=== PATIENT | female | born 1940 | race Caucasian/White ===

== ENCOUNTER 2018-03-10 17:32 | Inpatient (IN) ==
[2018-03-11] MEDS ORDERED: Acetaminophen 325 MG Tablet PO PRN (00:50)
[2018-03-11 07:32] LABS: Calcium 9.1 mg/dL (8.5-10.1); Carbon Dioxide 27.7 meq/L (21.0-32.0); Potassium 3.7 meq/L (3.5-5.1)
[2018-03-11 07:36] LABS: Chol/HDL Ratio 1.61 Ratio; HDL Cholesterol 90.8 mg/dL (40.0-60.0)
[2018-03-11] MEDS: LORazepam 0.5 MG Tablet PO PRN (16:00)
[2018-03-11] MEDS: Sertraline 50 MG Tablet PO SCH (16:03)
[2018-03-11] MEDS: Aluminum/Magnesium/Simethacone Susp 30 ML UDC PO PRN (16:05)
[2018-03-11 17:22] LABS: Hemoglobin A1c 5.5 % (4.3-6.0)
--- NOTE | 2018-03-11 17:23 | P.CON ---
History of Present Illness Reason for Consult: Patient with a history of hypertension, GERD, autoimmune hepatitis, history Primary Care Provider: UNKNOWN History of Present Illness: The patient is a 77-year-old female with past medical history of hypertension, GERD, macular degeneration left eye, autoimmune hepatitis, history of skin cancer, incidental findings of marked microadenoma on CT, recently treated for dehydration and altered mental status at [facility]. Patient was transferred to [facility] for suicidal ideation. Patient is responsible reporting abdominal discomfort, and she is still confused. The hospitalist is consulted for evaluation Review of Systems All other systems reviewed negative except as stated in HPI PMFSH - History History Provided By: Patient - Medical History Medical History: Medical History (Last Reviewed 03/11/18 @ 19:09 by Carmen Morelos MD) Altered mental status Autoimmune hepatitis Dehydration GERD (gastroesophageal reflux disease) History of skin cancer Hypertension Suicidal ideation - Tobacco History Second Hand Smoke Exposure: No Smoking Status: Never smoker - Alcohol History How Often Do You Have a Drink Containing Alcohol: Monthly or less - Substance Use History Substance History: No History of Abuse Medications and Allergies Active Medications: Active Medications Acetaminophen (Tylenol) 650 mg PO Q4H PRN PRN Reason: PAIN 1-5 OR TEMP > 101 Al Hydrox/Mg Hydrox/Simethicone (Mag-Al Plus Susp Liq) 30 ml PO Q6H PRN PRN Reason: DYSPEPSIA Last Admin: 03/11/18 16:05 Dose: 30 ml Al Hydroxide/Mg Hydroxide (Milk Of Magnesia Liq) 30 ml PO DAILY PRN PRN Reason: CONSTIPATION Diphenhydramine HCl (Benadryl) 25 mg PO HS JUANY Lorazepam (Ativan) 0.5 mg PO Q12H PRN PRN Reason: MOD TO SEVERE ANXIETY Last Admin: 03/11/18 16:00 Dose: 0.5 mg Lorazepam (Ativan Inj) 0.5 mg IM Q12H PRN PRN Reason: MOD TO SEVERE ANXIETY Miscellaneous (Pill Splitter) 1 each OTHER UNSCH PRN PRN Reason: SEE LABEL COMMENTS Sertraline HCl (Zoloft) 25 mg PO DAILY JUANY Last Admin: 03/11/18 16:03 Dose: 25 mg Allergies Allergy/AdvReac Type Severity Reaction Status Date / Time mafenide [From Sulfamylon] Allergy Anaphylaxis Verified 03/11/18 01:08 Sulfa (Sulfonamide Allergy Anaphylaxis Verified 03/11/18 01:03 Antibiotics) sulfabenzamide Allergy Anaphylaxis Verified 03/11/18 01:08 sulfacetamide Allergy Anaphylaxis Verified 03/11/18 01:08 sulfacytine Allergy Anaphylaxis Verified 03/11/18 01:08 sulfadiazine Allergy Anaphylaxis Verified 03/11/18 01:08 sulfadimethoxine Allergy Anaphylaxis Verified 03/11/18 01:08 sulfadoxine Allergy Anaphylaxis Verified 03/11/18 01:08 sulfaguanidine Allergy Anaphylaxis Verified 03/11/18 01:08 sulfalene Allergy Anaphylaxis Verified 03/11/18 01:08 sulfamerazine Allergy Anaphylaxis Verified 03/11/18 01:08 sulfameter Allergy Anaphylaxis Verified 03/11/18 01:08 sulfamethazine Allergy Anaphylaxis Verified 03/11/18 01:08 sulfamethizole Allergy Anaphylaxis Verified 03/11/18 01:08 sulfamethoxazole Allergy Anaphylaxis Verified 03/11/18 01:01 [From Bactrim] sulfamethoxypyridazine Allergy Anaphylaxis Verified 03/11/18 01:08 sulfametrole Allergy Anaphylaxis Verified 03/11/18 01:08 sulfamoxole Allergy Anaphylaxis Verified 03/11/18 01:08 sulfanilamide Allergy Anaphylaxis Verified 03/11/18 01:08 sulfaphenazole Allergy Anaphylaxis Verified 03/11/18 01:08 sulfapyridine Allergy Anaphylaxis Verified 03/11/18 01:08 sulfasalazine Allergy Anaphylaxis Verified 03/11/18 01:08 sulfathiazole Allergy Anaphylaxis Verified 03/11/18 01:08 sulfur [From Sulfacet-R] Allergy Anaphylaxis Verified 03/11/18 01:08 trimethoprim [From Bactrim] Allergy Anaphylaxis Verified 03/11/18 01:01 Home Medications Medication Instructions Recorded Confirmed Type Systane (propylene glycol) See Label Instructions .ROUTE 03/11/18 03/11/18 History .COMPLEX PRN vit C,U-Hd-nnytc-lutein-zeaxan BID 03/11/18 History [PreserVision AREDS-2] Physical Exam Vital signs: Vital Signs 03/11/18 00:03 03/11/18 05:02 Temperature 97.6 F 97.3 F L Pulse Rate 101 H 102 H Respiratory Rate 18 17 Blood Pressure 166/78 H 150/70 H Pulse Oximetry 96 96 Intake & Output 03/10/18 03/11/18 03/11/18 18:59 06:59 18:59 Intake Total 240 / 240 480 / 480 Balance 240 / 240 480 / 480 Weight 66.4 kg Intake: Oral 240 / 240 480 / 480 Other: # Voids 3 Weight On Admission 66.4 kg Narrative: GENERAL: 77 yo F in nad. SKIN: Warm and dry. HEAD: Atraumatic. Normocephalic. EYES: Pupils equal and round. No scleral icterus. No injection or drainage. ENT: No nasal bleeding or discharge. Mucous membranes pink and moist. NECK: Trachea midline. No JVD. CARDIOVASCULAR: Regular rate and rhythm. RESPIRATORY: No accessory muscle use. Clear to auscultation. Breath sounds equal bilaterally. GASTROINTESTINAL: Abdomen soft, non-tender, nondistended. Hepatic and splenic margins not palpable. MUSCULOSKELETAL: Extremities without clubbing, cyanosis, or edema. No obvious deformities. NEUROLOGICAL: Awake and alert. No obvious cranial nerve deficits. Motor grossly within normal limits. Five out of 5 muscle strength in the arms and legs. Normal speech. PSYCHIATRIC: Appropriate mood and affect; insight and judgment normal. Assessment and Plan - Plan Suicidal ideation -management per psychiatry team Chronic medical problems GERD, autoimmune hepatitis, hypertension monitor , restart home medications as appropriate. Do medication reconciliations. Recently [facility] for dehydration. Incidental findings pituitary macroadenoma, underwent extensive work up at [facility]. Was seen by neurology Dr Gagnon , recommends follow up with CT scan in 2-3 months with her PCP as well as to follow up as OP with endocrinology. Patient without dizziness and no vision changes. Will check cbc, cmp Discussed with the patient, nurse, family Discussed Condition With: Patient, nurse
--- NOTE | 2018-03-11 22:07 | P.HPPSY ---
Provisional Diagnosis Admission Date: March 10, 2018 23:40 [place] I.: Adjustment disorder with depressed mood Competence Certification of Person's Competence To Provide Express and Informed Consent I have personally examined Diane Covarrubias, a person being served at [facility] on, March 11, 2018 2148. Express and informed consent means consent voluntarily given in writing, by a competent person, after sufficient explanation and disclosure of the subject matter involved to enable the person to make a knowing and willful decision without any element of force, fraud, deceit, duress, or other form of constraint or coercion. This person is 18 years of age or older, is not now known to be incompetent to consent to treatment with a guardian advocate, and does not have a health care surrogate or proxy currently making medical treatment decisions. I have found this person to be one of the following: [] Competent to provide express and informed consent, as defined above, for voluntary admission to this facility and is competent to provide express and informed consent for treatment. He/she has the consistent capacity to make well reasoned, willful, and knowing decisions concerning his or her medical or mental health treatment. The person fully and consistently understands the purpose of the admission for examination/placement and is fully capable of personally exercising all rights assured under [place]xxx] Incompetent to provide express and informed consent to voluntary admission , and this is incompetent to provide express and informed consent to treatment. The person must be transferred to involuntary status and a petition for a guardian advocate filed with the Circuit Court. [] Refusing to provide express and informed consent to voluntary admission but is competent to provide express and informed consent for treatment. The person must be discharged or transferred to involuntary status. Form shall be completed within 24 hours of a person's arrival at the receiving facility and filed in the clinical record of each person: 1. Admitted on a voluntary basis 2. Permitted to provide express and informed consent to his/her own treatment 3. Allowed to transfer from involuntary to voluntary status 4. Prior to permitting a person to consent to his or her own treatment after having been previously found incompetent to consent to treatment. History of Present Illness Capacity: Lacks capacity History of Present Illness: Patient is a 77-year-old woman, , retired on Social Security income, domiciled with , with no past psychiatric history, no previous psychiatric diagnoses, no previous psychiatric admissions, suicide attempts or self-injurious behavior, with a past medical history significant for hypertension, GERD, autoimmune hepatitis, history of skin cancer, who was transferred from a local hospital after being under [place] act which patient had endorse suicide ideations and attempted to herself on the medical floor which patient was admitted to the inpatient psychiatry unit for further evaluation and management. As per chart [place] act states patient with suicide attempt and never to kill herself. No will to live due to her medical conditions and decrease socialization secondary to visual problems. States "no hope, too much to handle". Stuffing sheets in her mouth and covering her nose and try to wrap an IV line around her neck. Patient was found lying hospital bed noted B, cooperative. Patient is alert and oriented x3. Patient states that she had been stressed and worried about eating and concerns of recent constipation. Patient states that she had broken the law in which she tried to harm herself with anything she could grab referred to staffing closet her mouth and appear quite on her neck. Patient states that she had attempted this at [facility] during her medical admission for dehydration. Patient denies having a specific plan but had suicide ideation for several days due to "cannot figure out what to eat, cannot make choices, hopeless". Patient states that she has been feeling depressed due to her physical conditions at this time. Currently continues to endorse suicide ideations feeling that things would not change, hopeless, decreased sleep for the past month, denying any change in appetite but has hesitancy to eat due to fear of constipation as stated above. Patient continues to feel helpless and hopeless, with decreased energy and concentration. Patient denies any perceptional disturbances at this time. Collateral contact, patient's daughter Leti Hyatt, was contacted via telephone stated that patient recently has since her hip surgery patient had been struggling with recovering in the patient to be frustrated with limited help. She states that the patient had become dehydrated which led to her admission to [facility] and prior to discharge from that admission patient had tried to hurt herself. She states that she believes patient feared that if she went home she would not receive the help at home. She agrees to be patient's healthcare surrogate and guardian advocate there is admission consents for treatment which medication regimen was reviewed and discussed benefits/risks/alternatives. Family psychiatric history: Uncle committed suicide Past psychiatric history: Denies previous psychiatric diagnoses, hospitalizations, suicide attempt or self-injurious behavior. Patient with no mental health outpatient provider. No previous medication trials. Past medical history: HTN, GERD, history of skin cancer, autoimmune hepatitis Allergies: Sulfas Substance use history: Denies Social history: , domiciled with , retired on Social Security income, yazidism is [employer], patient not sure if there are firearms in the home. - Inpatient Certification I certify that the inpatient services were ordered in accordance with Medicare regulations governing the order. This includes certification that hospital inpatient services are reasonable and necessary and in the case of services not specified as inpatient-only under 42 CFR 419.22(n), that they are appropriately provided as inpatient services in accordance to with the 2-midnight benchmark under 43 CFR 412.3(e) I certify that inpatient psychiatric hospital services are medically necessary. Evaluation and treatment and/or diagnostic testing are expected to improve the patient's condition. The patient needs on a daily basis, active treatment furnished directly by or requiring the supervision of inpatient psychiatric facility personnel. Estimated Total Length of Stay (Days): 7 Plans for Post Hospital Care: Not yet determined Review of Systems All other systems reviewed negative except as stated in [facility] - History History Provided By: Patient, Family Member, Medical Record - Medical History Medical History: Medical History (Last Reviewed 03/11/18 @ 19:09 by Carmen Morelos MD) Altered mental status Autoimmune hepatitis Dehydration GERD (gastroesophageal reflux disease) History of skin cancer Hypertension Suicidal ideation - Tobacco History Second Hand Smoke Exposure: No Smoking Status: Never smoker - Alcohol History How Often Do You Have a Drink Containing Alcohol: Monthly or less - Substance Use History Substance History: No History of Abuse Quality Measures - Psychiatric History Psychological trauma history: denies Violence risk to others in the last 6 months: low Violence risk to self in the last 6 months: elevated due to recent parasuicidal behavior - Substance Abuse History Drug or alcohol use in the past 12 months: denies - Patient Strengths Patient's strengths (minimum of 2): verbal and communicative Medications and Allergies Active Medications: Active Medications Acetaminophen (Tylenol) 650 mg PO Q4H PRN PRN Reason: PAIN 1-5 OR TEMP > 101 Al Hydrox/Mg Hydrox/Simethicone (Mag-Al Plus Susp Liq) 30 ml PO Q6H PRN PRN Reason: DYSPEPSIA Last Admin: 03/11/18 16:05 Dose: 30 ml Al Hydroxide/Mg Hydroxide (Milk Of Magnkings Liq) 30 ml PO DAILY PRN PRN Reason: CONSTIPATION Artificial Tears (Refresh Tears 0.5% Opth Drops) 1 drop EACH EYE UNSCH PRN PRN Reason: EYE IRRITATION Diphenhydramine HCl (Benadryl) 25 mg PO HS [facility] Last Admin: 03/11/18 21:14 Dose: 25 mg Lorazepam (Ativan) 0.5 mg PO Q12H PRN PRN Reason: MOD TO SEVERE ANXIETY Last Admin: 03/11/18 16:00 Dose: 0.5 mg Lorazepam (Ativan Inj) 0.5 mg IM Q12H PRN PRN Reason: MOD TO SEVERE ANXIETY Miscellaneous (Pill Splitter) 1 each OTHER UNSCH PRN PRN Reason: SEE LABEL COMMENTS Multivitamins/Minerals (Ocuvite With Lutein) 1 tab PO BID [facility] Sertraline HCl (Zoloft) 25 mg PO DAILY [facility] Last Admin: 03/11/18 16:03 Dose: 25 mg Allergies Allergy/AdvReac Type Severity Reaction Status Date / Time mafenide [From Sulfamylon] Allergy Anaphylaxis Verified 03/11/18 01:08 Sulfa (Sulfonamide Allergy Anaphylaxis Verified 03/11/18 01:03 Antibiotics) sulfabenzamide Allergy Anaphylaxis Verified 03/11/18 01:08 sulfacetamide Allergy Anaphylaxis Verified 03/11/18 01:08 sulfacytine Allergy Anaphylaxis Verified 03/11/18 01:08 sulfadiazine Allergy Anaphylaxis Verified 03/11/18 01:08 sulfadimethoxine Allergy Anaphylaxis Verified 03/11/18 01:08 sulfadoxine Allergy Anaphylaxis Verified 03/11/18 01:08 sulfaguanidine Allergy Anaphylaxis Verified 03/11/18 01:08 sulfalene Allergy Anaphylaxis Verified 03/11/18 01:08 sulfamerazine Allergy Anaphylaxis Verified 03/11/18 01:08 sulfameter Allergy Anaphylaxis Verified 03/11/18 01:08 sulfamethazine Allergy Anaphylaxis Verified 03/11/18 01:08 sulfamethizole Allergy Anaphylaxis Verified 03/11/18 01:08 sulfamethoxazole Allergy Anaphylaxis Verified 03/11/18 01:01 [From Bactrim] sulfamethoxypyridazine Allergy Anaphylaxis Verified 03/11/18 01:08 sulfametrole Allergy Anaphylaxis Verified 03/11/18 01:08 sulfamoxole Allergy Anaphylaxis Verified 03/11/18 01:08 sulfanilamide Allergy Anaphylaxis Verified 03/11/18 01:08 sulfaphenazole Allergy Anaphylaxis Verified 03/11/18 01:08 sulfapyridine Allergy Anaphylaxis Verified 03/11/18 01:08 sulfasalazine Allergy Anaphylaxis Verified 03/11/18 01:08 sulfathiazole Allergy Anaphylaxis Verified 03/11/18 01:08 sulfur [From Sulfacet-R] Allergy Anaphylaxis Verified 03/11/18 01:08 trimethoprim [From Bactrim] Allergy Anaphylaxis Verified 03/11/18 01:01 Home Medications Medication Instructions Recorded Confirmed Type Systane (propylene glycol) See Label Instructions .ROUTE 03/11/18 03/11/18 History .COMPLEX PRN vit C,T-Ra-gaynn-lutein-zeaxan BID 03/11/18 History [PreserVision AREDS-2] Results - Labs CBC & Chem 7: 03/11/18 06:50 Labs: Laboratory Results - last 24 hr 03/11/18 03/11/18 06:50 15:00 Sodium 134 L Potassium 3.7 Chloride 100 Carbon Dioxide 27.7 Anion Gap 6 BUN 11 Creatinine 0.75 Estimated GFR 75 L Random Glucose 102 Hemoglobin A1c 5.5 Calcium 9.1 Triglycerides 83 Cholesterol 147 LDL Cholesterol, Calc 40 HDL Cholesterol 90.8 H Cholesterol/HDL Ratio 1.61 Exam Vital signs: Vital Signs 03/11/18 00:03 03/11/18 05:02 03/11/18 17:29 Temperature 97.6 F 97.3 F L 97.7 F Pulse Rate 101 H 102 H 96 H Respiratory Rate 18 17 18 Blood Pressure 166/78 H 150/70 H 175/81 H Pulse Oximetry 96 96 97 Intake & Output 03/11/18 03/11/18 03/12/18 06:59 18:59 06:59 Intake Total 240 / 240 1200 / 1200 Balance 240 / 240 1200 / 1200 Weight 66.4 kg Intake: Oral 240 / 240 1200 / 1200 Other: # Voids 3 2 Weight On Admission 66.4 kg Narrative: Not noted to be in acute distress, no gross motor abnormalities, no signs of tremor or EPS, no psychomotor agitation but noted with some psychomotor retardation. - Constitutional no acute distress, cooperative Mental Status Examination Orientation: Person, Place, Date/Time Speech: Unremarkable Language: Adequate Fund of Knowledge: Inadequate Attention and Concentration: Easily distracted Memory: Impaired Mood: Anxious Affect: Anxious Thought Process & Associations: Tangential Thought Content: Preoccupations Delusion Type: Bizarre Insight: Poor Judgment: Poor Assessment and Plan - Assessment (1) Adjustment disorder with depressed mood Code(s): F43.21 - Adjustment disorder with depressed mood Status: Acute - Plan Plan: Estimated LOS: [] days Patient is a 77-year-old woman, , retired on Social Security income, domiciled with , with no past psychiatric history, no previous psychiatric diagnoses, no previous psychiatric admissions, suicide attempts or self-injurious behavior, with a past medical history significant for hypertension, GERD, autoimmune hepatitis, history of skin cancer, who was transferred from a local hospital after being under [place] act which patient had endorse suicide ideations and attempted to herself on the medical floor which patient was admitted to the inpatient psychiatry unit for further evaluation and management. Patient this time continues with depressed mood along with suicide ideations and noted to have some psychomotor retardation. Patient depressesion has affected her cognitive ability at this time does not have capacity to consent for treatment and therefore petition for involuntary hospitalization started, second opinion requested Patient daughter will serve as health concerns regarding advocate for this admission. We will start sertraline 25 mg p.o. daily with upper titration for depression. Hospitalist input appreciated. Continue recommendations as her prior medical team. Continue to monitor mood and behavior. Discharge planning a progress. Justification for Continued Inpatient Stay: At risk of further decompensation a lower level of care.
[2018-03-11] MEDS: Vitamins A,C,E/Lutein/Minerals Tablet PO SCH (22:27)
--- NOTE | 2018-03-12 09:20 | P.PN ---
Subjective Interval history: The patient is in bed family at bedside. Patient is crying appears severely depressed. With suicidal ideations and patient says she wants to . Denies chest pain or shortness of breath. No nausea or vomiting. She is however refusing to eat and is refusing medications. Sodium level is trending down. Encourage p.o. intake. Physical Exam Vital signs: Vital Signs 03/11/18 17:29 03/12/18 06:00 Temperature 97.7 F 97.1 F L Pulse Rate 96 H 90 Respiratory Rate 18 16 Blood Pressure 175/81 H 125/95 H Pulse Oximetry 97 95 Intake & Output 03/11/18 03/12/18 03/12/18 18:59 06:59 18:59 Intake Total 1200 / 1200 240 / 240 Balance 1200 / 1200 240 / 240 Intake: Oral 1200 / 1200 240 / 240 Other: # Voids 2 Narrative: GENERAL: 77 yo F in bed, appears severely depressed crying. CARDIOVASCULAR: Regular rate and rhythm. RESPIRATORY: No accessory muscle use. Clear to auscultation. Breath sounds equal bilaterally. GASTROINTESTINAL: Abdomen soft, non-tender, nondistended. Hepatic and splenic margins not palpable. MUSCULOSKELETAL: Extremities without clubbing, cyanosis, or edema. No obvious deformities. NEUROLOGICAL: Awake and alert. No obvious cranial nerve deficits. Motor grossly within normal limits. Five out of 5 muscle strength in the arms and legs. Normal speech. PSYCHIATRIC: Severely depressed. With suicidal ideation says she wants to . Results - Labs CBC & Chem 7: 03/12/18 14:16 Laboratory Results - last 24 hr 03/11/18 15:00 Hemoglobin A1c 5.5 Assessment and Plan - Assessment (1) Adjustment disorder with depressed mood Code(s): F43.21 - Adjustment disorder with depressed mood Status: Acute - Plan Suicidal ideation -management per psychiatry team Chronic medical problems GERD, autoimmune hepatitis, hypertension monitor , restart home medications as appropriate. Do medication reconciliations. Recently seen at [facility] for dehydration. Incidental findings pituitary macroadenoma, underwent extensive work up at [facility]. Was seen by neurology Dr Gagnon , recommends follow up with CT scan in 2-3 months with her PCP as well as to follow up as OP with endocrinology. Patient without dizziness and no vision changes. Mild hyponatremia , Na at 134 on admission, sodium is trending down, encourage PO intake. So regular diet add mighty shakes Discussed with the patient, nurse, family at bedside
[2018-03-12] MEDS: LORazepam 0.5 MG Tablet PO PRN ×2 (11:27→23:57)
[2018-03-12] MEDS: Sertraline 50 MG Tablet PO SCH (11:27)
[2018-03-12] MEDS: Vitamins A,C,E/Lutein/Minerals Tablet PO SCH ×2 (11:27→21:08)
[2018-03-12 14:50] LABS: Alanine Aminotransferase 19 U/L (10-53); Albumin 3.2 g/dL (3.4-5.0); Anion Gap 10 meq/L (5-15); Aspartate Aminotransferase 15 U/L (15-37); Blood Urea Nitrogen 12 mg/dL (7-18); Calcium 8.9 mg/dL (8.5-10.1); Carbon Dioxide 26.1 meq/L (21.0-32.0); Chloride 96 meq/L (98-107); Glomerular Filtration Rate Greater Than 89 mL/min (>89); Glucose,Random 102 mg/dL (74-106); Potassium 4.1 meq/L (3.5-5.1); Sodium 132 meq/L (136-145)
[2018-03-12 14:53] LABS: Alkaline Phosphatase 54 U/L (45-117); Total Protein 7.2 g/dL (6.4-8.2)
--- NOTE | 2018-03-12 17:26 | P.CONPSY ---
Provisional Diagnosis Admission Date: March 10, 2018 23:40 [place] I.: Adjustment disorder with depressed mood History of Present Illness Service: Psychiatry Consult date: 03/12/18 Requesting Physician: Velasquez Luna Reason for Consult: Second opinion petition supporting Bynum act Primary Care Provider: UNKNOWN History of Present Illness: Patient is a 77-year-old white female admitted to Dr. Luna service under the Bynum act. Dr. Luna assigned first opinion petition supporting Bynum act. I have reviewed Dr. Luna dictation, patient seen by me with nurse. Patient remains depressed somewhat irritable somewhat hopeless and helpless. She is somewhat vague at this time about continued suicidality. At this time I feel patient meets criteria under the Bynum act thus I will cosign second opinion petition supporting [place] act Review of Systems All other systems reviewed negative except as stated in HPI PMFSH - History History Provided By: Patient, Family Member, Medical Record - Medical History Medical History: Medical History (Last Reviewed 03/11/18 @ 19:09 by Carmen Morelos MD) Altered mental status Autoimmune hepatitis Dehydration GERD (gastroesophageal reflux disease) History of skin cancer Hypertension Suicidal ideation - Tobacco History Second Hand Smoke Exposure: No Smoking Status: Never smoker - Alcohol History How Often Do You Have a Drink Containing Alcohol: Monthly or less - Substance Use History Substance History: No History of Abuse Medications and Allergies Active Medications: Active Medications Acetaminophen (Tylenol) 650 mg PO Q4H PRN PRN Reason: PAIN 1-5 OR TEMP > 101 Al Hydrox/Mg Hydrox/Simethicone (Mag-Al Plus Susp Liq) 30 ml PO Q6H PRN PRN Reason: DYSPEPSIA Last Admin: 03/11/18 16:05 Dose: 30 ml Al Hydroxide/Mg Hydroxide (Milk Of Magnesia Liq) 30 ml PO DAILY PRN PRN Reason: CONSTIPATION Artificial Tears (Refresh Tears 0.5% Opth Drops) 1 drop EACH EYE UNSCH PRN PRN Reason: EYE IRRITATION Diphenhydramine HCl (Benadryl) 25 mg PO HS JUANY Last Admin: 03/11/18 21:14 Dose: 25 mg Lorazepam (Ativan) 0.5 mg PO Q12H PRN PRN Reason: MOD TO SEVERE ANXIETY Last Admin: 03/12/18 11:27 Dose: 0.5 mg Lorazepam (Ativan Inj) 0.5 mg IM Q12H PRN PRN Reason: MOD TO SEVERE ANXIETY Miscellaneous (Pill Splitter) 1 each OTHER UNSCH PRN PRN Reason: SEE LABEL COMMENTS Multivitamins/Minerals (Ocuvite With Lutein) 1 tab PO BID [facility] Last Admin: 03/12/18 11:27 Dose: 1 tab Sertraline HCl (Zoloft) 25 mg PO DAILY [facility] Last Admin: 03/12/18 11:27 Dose: 25 mg Allergies Allergy/AdvReac Type Severity Reaction Status Date / Time mafenide [From Sulfamylon] Allergy Anaphylaxis Verified 03/11/18 01:08 Sulfa (Sulfonamide Allergy Anaphylaxis Verified 03/11/18 01:03 Antibiotics) sulfabenzamide Allergy Anaphylaxis Verified 03/11/18 01:08 sulfacetamide Allergy Anaphylaxis Verified 03/11/18 01:08 sulfacytine Allergy Anaphylaxis Verified 03/11/18 01:08 sulfadiazine Allergy Anaphylaxis Verified 03/11/18 01:08 sulfadimethoxine Allergy Anaphylaxis Verified 03/11/18 01:08 sulfadoxine Allergy Anaphylaxis Verified 03/11/18 01:08 sulfaguanidine Allergy Anaphylaxis Verified 03/11/18 01:08 sulfalene Allergy Anaphylaxis Verified 03/11/18 01:08 sulfamerazine Allergy Anaphylaxis Verified 03/11/18 01:08 sulfameter Allergy Anaphylaxis Verified 03/11/18 01:08 sulfamethazine Allergy Anaphylaxis Verified 03/11/18 01:08 sulfamethizole Allergy Anaphylaxis Verified 03/11/18 01:08 sulfamethoxazole Allergy Anaphylaxis Verified 03/11/18 01:01 [From Bactrim] sulfamethoxypyridazine Allergy Anaphylaxis Verified 03/11/18 01:08 sulfametrole Allergy Anaphylaxis Verified 03/11/18 01:08 sulfamoxole Allergy Anaphylaxis Verified 03/11/18 01:08 sulfanilamide Allergy Anaphylaxis Verified 03/11/18 01:08 sulfaphenazole Allergy Anaphylaxis Verified 03/11/18 01:08 sulfapyridine Allergy Anaphylaxis Verified 03/11/18 01:08 sulfasalazine Allergy Anaphylaxis Verified 03/11/18 01:08 sulfathiazole Allergy Anaphylaxis Verified 03/11/18 01:08 sulfur [From Sulfacet-R] Allergy Anaphylaxis Verified 03/11/18 01:08 trimethoprim [From Bactrim] Allergy Anaphylaxis Verified 09/25/18 01:01 Home Medications Medication Instructions Recorded Confirmed Type Systane (propylene glycol) See Label Instructions .ROUTE 03/11/18 03/11/18 History .COMPLEX PRN vit C,U-Rj-ijaix-lutein-zeaxan BID 03/11/18 History [PreserVision AREDS-2] Exam Vital signs: Vital Signs 03/11/18 17:29 03/12/18 06:00 Temperature 97.7 F 97.1 F L Pulse Rate 96 H 90 Respiratory Rate 18 16 Blood Pressure 175/81 H 125/95 H Pulse Oximetry 97 95 Intake & Output 03/11/18 03/12/18 03/12/18 18:59 06:59 18:59 Intake Total 1200 / 1200 240 / 240 960 / 960 Balance 1200 / 1200 240 / 240 960 / 960 Intake: Oral 1200 / 1200 240 / 240 960 / 960 Other: # Voids 2 2 # Bowel Movements 0 Narrative: Patient is seen in her room with nurse, she is laying in bed in no acute distress, no respiratory distress, no complaints of chest pain or abdominal pain. Patient moving all 4 extremities slightly Mental Status Examination Orientation: Person, Place, Date/Time Speech: Unremarkable Language: Adequate Fund of Knowledge: Inadequate Attention and Concentration: Easily distracted Memory: Impaired Mood: Anxious Affect: Anxious Thought Process & Associations: Tangential Thought Content: Preoccupations Delusion Type: Bizarre Insight: Poor Judgment: Poor Assessment and Plan - Assessment (1) Adjustment disorder with depressed mood Code(s): F43.21 - Adjustment disorder with depressed mood Status: Acute - Plan Plan: Patient meets Bynum criteria thus I will cosign second opinion petition supporting Bynum act Justification for Continued Inpatient Stay: At this time patient would decompensate if placed in a lower level of care Discharge Planning: To be determined
[2018-03-12] MEDS: Aluminum/Magnesium/Simethacone Susp 30 ML UDC PO PRN (23:57)
[2018-03-13 08:27] LABS: Anion Gap 9 meq/L (5-15); Blood Urea Nitrogen 11 mg/dL (7-18); Calcium 8.6 mg/dL (8.5-10.1); Carbon Dioxide 25.3 meq/L (21.0-32.0); Chloride 94 meq/L (98-107); Glomerular Filtration Rate Greater Than 89 mL/min (>89); Glucose,Random 120 mg/dL (74-106); Potassium 4.1 meq/L (3.5-5.1); Sodium 128 meq/L (136-145)
[2018-03-13] MEDS: Sertraline 50 MG Tablet PO SCH (08:27)
[2018-03-13] MEDS: Vitamins A,C,E/Lutein/Minerals Tablet PO SCH ×2 (08:27→20:20)
[2018-03-13] MEDS: LORazepam 0.5 MG Tablet PO PRN (11:22)
[2018-03-13] MEDS: Carboxymethylcellulose 0.5% Opth Drops 15 ML Bottle EACH EYE PRN ×2 (11:40→20:20)
--- NOTE | 2018-03-13 13:27 | P.PN ---
Subjective Interval history: In nad Eating better today. No nausea or vomiting. No motor deficit or change in vision. Denies chest pain or shortness of breath. She is able to ambulate with a walker Says she is sleepy Physical Exam Vital signs: Vital Signs 03/12/18 18:36 03/13/18 06:00 Temperature 97.6 F 97.6 F Pulse Rate 87 89 Respiratory Rate 18 18 Blood Pressure 147/84 H 147/69 H Pulse Oximetry 96 96 Intake & Output 03/12/18 03/13/18 03/13/18 18:59 06:59 18:59 Intake Total 960 / 960 300 / 300 360 / 360 Balance 960 / 960 300 / 300 360 / 360 Intake: Oral 960 / 960 300 / 300 360 / 360 Other: # Voids 2 1 # Bowel Movements 0 Narrative: GENERAL: 77 yo F in bed, appears to not acute distress, appears depressed CARDIOVASCULAR: Regular rate and rhythm. RESPIRATORY: No accessory muscle use. Clear to auscultation. Breath sounds equal bilaterally. GASTROINTESTINAL: Abdomen soft, non-tender, nondistended. Hepatic and splenic margins not palpable. MUSCULOSKELETAL: Extremities without clubbing, cyanosis, or edema. No obvious deformities. NEUROLOGICAL: Awake and alert. No obvious cranial nerve deficits. Motor grossly within normal limits. Five out of 5 muscle strength in the arms and legs. Normal speech. PSYCHIATRIC: Appears depressed. Results - Labs CBC & Chem 7: 03/13/18 07:12 Laboratory Results - last 24 hr 03/12/18 03/13/18 14:16 07:12 Sodium 132 L 128 L Potassium 4.1 4.1 Chloride 96 L 94 L Carbon Dioxide 26.1 25.3 Anion Gap 10 9 BUN 12 11 Creatinine 0.55 0.57 Estimated GFR Greater than 89 Greater than 89 Random Glucose 102 120 H Calcium 8.9 8.6 Total Bilirubin 0.8 AST 15 ALT 19 Alkaline Phosphatase 54 Total Protein 7.2 Albumin 3.2 L Assessment and Plan - Assessment (1) Adjustment disorder with depressed mood Code(s): F43.21 - Adjustment disorder with depressed mood Status: Acute - Plan Depression. Suicidal ideation -management per psychiatry team Chronic medical problems GERD, autoimmune hepatitis, hypertension monitor , restart home medications as appropriate. Do medication reconciliations. Recently seen at [facility] for dehydration. Incidental findings pituitary macroadenoma, underwent extensive work up at [facility]. Was seen by neurology Dr Gagnon , recommends follow up with CT scan in 2-3 months with her PCP as well as to follow up as OP with endocrinology. Patient without dizziness and no vision changes. Mild hyponatremia , Na at 134 on admission, sodium is trending down, encourage PO intake. regular diet / mighty shakes. Consult dietitian. Discussed with the patient, nurse
--- NOTE | 2018-03-13 17:34 | P.PNPSY ---
Subjective Remarks: Patient seen in her room with nurse Ashok and medical student Hedy Harris Patient calm cooperative though still depressed sad quiet spoken. When asked about if she would take the suicide pill she stated "do not ask me that". Later she said she wants to live. She is compliant with her medications. The chart is been reviewed. Patient discussed with nurse. For now continue treatment Review of Systems All other systems reviewed negative except as stated in HPI Mental Status Examination Appearance: Appropriate Consciousness: Alert Orientation: Person, Place, Date/Time Speech: Unremarkable Language: Adequate Fund of Knowledge: Inadequate Attention and Concentration: Easily distracted Memory: Impaired Mood: Anxious Affect: Anxious Thought Process & Associations: Tangential Thought Content: Preoccupations Delusion Type: Bizarre Insight: Poor Judgment: Poor Assessment and Plan - Assessment (1) Adjustment disorder with depressed mood Code(s): F43.21 - Adjustment disorder with depressed mood Status: Acute - Plan Plan: Patient remains depressed sad with a sad face, quiet spoken, made vague negative statement about taking the suicide pill. For now continue treatment Justification for Continued Inpatient Stay: At this time patient would decompensate a place to a lower level of care Discharge Planning: To be determined
[2018-03-14] MEDS: Vitamins A,C,E/Lutein/Minerals Tablet PO SCH ×2 (08:00→21:19)
[2018-03-14] MEDS: LORazepam 0.5 MG Tablet PO PRN (08:00)
[2018-03-14] MEDS: Sertraline 50 MG Tablet PO SCH (08:00)
[2018-03-14 08:49] LABS: Anion Gap 9 meq/L (5-15); Blood Urea Nitrogen 9 mg/dL (7-18); Carbon Dioxide 23.9 meq/L (21.0-32.0); Chloride 91 meq/L (98-107); Glomerular Filtration Rate Greater Than 89 mL/min (>89); Glucose,Random 117 mg/dL (74-106); Potassium 4.2 meq/L (3.5-5.1)
[2018-03-14 09:18] LABS: Sodium 124 meq/L (136-145)
--- NOTE | 2018-03-14 11:13 | P.PN ---
Subjective Interval history: Na trending down start NS IVF and monitor Na level. Might need water restriction. No abdominal cramps, diarrhea. Has constipation. She is not confused. Still very depressed plan to increase Zoloft per psychiatry. Says she is eating better today however sodium is noted trending down. Physical Exam Vital signs: Vital Signs 03/13/18 18:00 03/14/18 06:15 Temperature 98.1 F 97.3 F L Pulse Rate 82 84 Respiratory Rate 18 16 Blood Pressure 157/72 H 169/77 H Pulse Oximetry 97 96 Intake & Output 03/13/18 03/14/18 03/14/18 18:59 06:59 18:59 Intake Total 1680 / 1680 840 / 840 Balance 1680 / 1680 840 / 840 Intake: Oral 1680 / 1680 840 / 840 Other: # Voids 3 1 Narrative: GENERAL: 77 yo F in bed, appears to not acute distress, appears depressed CARDIOVASCULAR: Regular rate and rhythm. RESPIRATORY: No accessory muscle use. Clear to auscultation. Breath sounds equal bilaterally. GASTROINTESTINAL: Abdomen soft, non-tender, nondistended. Hepatic and splenic margins not palpable. MUSCULOSKELETAL: Extremities without clubbing, cyanosis, or edema. No obvious deformities. NEUROLOGICAL: Awake and alert. No obvious cranial nerve deficits. Motor grossly within normal limits. Five out of 5 muscle strength in the arms and legs. Normal speech. PSYCHIATRIC: Appears depressed. Results - Labs CBC & Chem 7: 03/14/18 07:27 Laboratory Results - last 24 hr 03/14/18 07:27 Sodium 124 L* Potassium 4.2 Chloride 91 L Carbon Dioxide 23.9 Anion Gap 9 BUN 9 Creatinine 0.50 Estimated GFR Greater than 89 Random Glucose 117 H Calcium 9.0 Assessment and Plan - Assessment (1) Adjustment disorder with depressed mood Code(s): F43.21 - Adjustment disorder with depressed mood Status: Acute - Plan Depression. Suicidal ideation -management per psychiatry team Chronic medical problems GERD, autoimmune hepatitis, hypertension monitor , restart home medications as appropriate. Do medication reconciliations. Recently seen at [facility] for dehydration. Incidental findings pituitary macroadenoma, underwent extensive work up at [facility]. Was seen by neurology Dr Gagnon , recommends follow up with CT scan in 2-3 months with her PCP as well as to follow up as OP with endocrinology. Patient without dizziness and no vision changes. Mild hyponatremia , Na at 134 on admission, sodium is trending down, encourage PO intake. regular diet / mighty shakes. Consult dietitian. Discussed with the patient, nurse
[2018-03-14] MEDS ORDERED: Sodium Chloride 0.9% 2 ML Flush PRN IV.FLUSH (12:27)
[2018-03-14] MEDS: Sod Chloride 0.9% Inj 1,000 ML IV.CONT SCH (12:49)
--- NOTE | 2018-03-14 13:59 | P.DIET ---
Nutritional Evaluation Type of nutrition evaluation: initial Nutrition screening: Poor PO Intake, [facility] Screening comments: 03/12/18 [facility] Poor PO Intake Subjective Subjective Comments: Pt says she has been "gagging" today. Pt requested Ensure earlier this week and she has been receiving Ensure w/meals. Pt reports she drank an Ensure this morning. has ordered Mighty Shakes and she says she is willing to try these and then decide which nutritional supplement she prefers. Pt says she'll "keep trying" to do better w/her food intake. Food Preferences taken. Objective - Diagnosis Adjustment DO - Objective [place] body weight: 48 kg % IBW: 139 Body Weight Used for Calculations: IBW Energy Needs - Lower Range (kCal/kg): 28 Energy Needs - Upper Range (kCal/kg): 33 Lower Limit kCal/kg (kCals): 1,336 Upper Limit kCal/kg (kCals): 1,584 Lower Limit Protein Factor (Grams per Kg): 1.2 Upper Limit Protein Factor (Grams per Kg): 1.5 Lower Protein Needs (Protein): 58 Upper Protein Needs (Protein): 72 Dietitian Reviewed in Medical Record: Current diet, Curent medications, Intake & Output, Labs, Medical history Diet Order: Regular Oral Diet Intake Amount: Fair 50-75% Objective Comments: PMH: AMS, Autoimmune Hepatitis, Dehydration, GERD, skin cancer, HTN, Suicidal Ideation A1C 5.5, Na 124 Meds Include: Ativan, Zoloft Feeding - Current PO Supplement Current Supplement: Mighty Shake Current Frequency of Supplement: Three times a day Current kCals Provided by Supplement: 300 Current Protein Provided by Supplement: 9 Assessment Assessment: Pt is at nutritional risk r/t poor po intake. Pt is currently receiving Ensure per her request, w/meals. [facility] for Mighty Shakes. Pt will decide which supplement she prefers. [place] pt's food preferences to assist w/increased po intake. Pt may benefit from an appetite stimulant, if medically appropriate. Dietitian following. Recommendations: 1. Pt is currently receiving Ensure per her request, w/meals 2. [facility] for Mighty Shakes 3. Pt will decide which supplement she prefers 4. [place] pt's food preferences to assist w/increased po intake 5. Rec an appetite stimulant, if medically appropriate 6. Dietitian following Dietitian to Monitor: Lab values, Electrolytes, Supplement acceptance, Intake & Output, Weight change, PO Intake, Medical course
[2018-03-14] MEDS ORDERED: Sertraline 50 MG Tablet PO ONE (17:41)
[2018-03-14] MEDS: Sodium Chloride 0.9% 2 ML Flush BID IV.FLUSH SCH (21:21)
--- NOTE | 2018-03-14 22:09 | P.PNPSY ---
Subjective Remarks: Patient seen for follow, chart reviewed. Discussion with nursing staff reported the patient continues with poor PO intake, continues to noted to be depressed but had participated in a group. Patient was found lying on hospital bed, noted to be dysphoric, fair eye contact. Patient states feeling distressed last night, worried about her medications as well as anxious of eating more due to fearing that she will not tolerate the food. She continues to feel depressed but denies any SI, "I want to live" but states feeling "hopeless sometimes". She mentions fearing that she will not get better physically and mentally. She reports having poor sleep last night. Review of Systems All other systems reviewed negative except as stated in HPI Mental Status Examination Appearance: Appropriate Consciousness: Alert Orientation: Person, Place, Date/Time Speech: Unremarkable Language: Adequate Fund of Knowledge: Inadequate Attention and Concentration: Easily distracted Memory: Impaired Mood: Sad, Anxious Affect: Anxious, Other (dysphoric) Thought Process & Associations: Tangential Thought Content: Preoccupations Hallucination Type: None Delusion Type: None, Bizarre Suicidal Ideation: No (unreliable) Suicidal Plan: No Suicidal Intention: No Homicidal Ideation: No Homicidal Plan: No Homicidal Intention: No Insight: Poor Judgment: Poor Assessment and Plan - Assessment (1) Adjustment disorder with depressed mood Code(s): F43.21 - Adjustment disorder with depressed mood Status: Acute - Plan Plan: Patient continues with depressed mood and although denying any SI, is noted to be dysphoric with poor PO intake but made effort to participate in group. Increase sertraline to 100mg PO daily for depression, continue rest of medications and recommendations as per primary medical team. Encourage patient to increase nutritional intake. Discharge planning in progress. Justification for Continued Inpatient Stay: At risk for further decompensation at lower level of care.
[2018-03-15] MEDS: Sod Chloride 0.9% Inj 1,000 ML IV.CONT SCH ×3 (00:53→21:55)
[2018-03-15 08:17] LABS: Anion Gap 9 meq/L (5-15); Blood Urea Nitrogen 7 mg/dL (7-18); Calcium 8.2 mg/dL (8.5-10.1); Carbon Dioxide 24.2 meq/L (21.0-32.0); Chloride 92 meq/L (98-107); Glomerular Filtration Rate Greater Than 89 mL/min (>89); Glucose,Random 104 mg/dL (74-106); Potassium 4.3 meq/L (3.5-5.1); Sodium 125 meq/L (136-145)
[2018-03-15] MEDS: Sodium Chloride 0.9% 2 ML Flush BID IV.FLUSH SCH ×2 (08:43→21:54)
[2018-03-15] MEDS: Sertraline 50 MG Tablet PO SCH (08:44)
[2018-03-15] MEDS: Vitamins A,C,E/Lutein/Minerals Tablet PO SCH ×2 (08:44→21:54)
[2018-03-15] MEDS: LORazepam 0.5 MG Tablet PO PRN (14:10)
[2018-03-15] MEDS: Carboxymethylcellulose 0.5% Opth Drops 15 ML Bottle EACH EYE PRN (15:14)
--- NOTE | 2018-03-15 16:16 | P.PNPSY ---
Subjective Remarks: Patient was seen and case discussed with nursing. I met with patient and her family. Family is very concerned about her discharge plan. Patient is very anxious and at times tearful during the interview. She seems confused. This could be due to her hyponatremia which is being treated by her medical doctor. Her chief complaint today is insomnia and we reviewed her Ativan schedule and it was suggested that she ask for her second dose of as needed Ativan before bed Mental Status Examination Appearance: Appropriate Consciousness: Alert Orientation: Person, Place, Date/Time Speech: Unremarkable Language: Adequate Fund of Knowledge: Inadequate Attention and Concentration: Easily distracted Memory: Impaired Mood: Anxious Affect: Anxious Thought Process & Associations: Circumstantial Thought Content: Preoccupations Delusion Type: Bizarre Suicidal Ideation: No Suicidal Plan: No Suicidal Intention: No Homicidal Ideation: No Homicidal Plan: No Homicidal Intention: No Insight: Poor Judgment: Poor Assessment and Plan - Assessment (1) Adjustment disorder with depressed mood Code(s): F43.21 - Adjustment disorder with depressed mood Status: Acute - Plan Plan: Continue current treatment plan Justification for Continued Inpatient Stay: Patient would decompensate in a less restrictive setting
--- NOTE | 2018-03-15 16:21 | P.PN ---
Subjective Interval history: Appears depressed. Denies cp, sob, n/v/d/c. No abd cramps. Was able to ambulate. No confusion. She is alert and oriented by 4 Physical Exam Vital signs: Vital Signs 03/14/18 18:06 03/15/18 05:38 Temperature 97.9 F 97.2 F L Pulse Rate 80 82 Respiratory Rate 15 Blood Pressure 160/74 H 162/74 H Pulse Oximetry 96 95 Intake & Output 03/14/18 03/15/18 03/15/18 18:59 06:59 18:59 Intake Total 840 / 840 1840 / 1840 1720 / 1720 Balance 840 / 840 1840 / 1840 1720 / 1720 Intake: IV 1000 / 1000 1000 / 1000 NS Inj 1,000 ML @ 84 mls/hr IV. 1000 / 1000 1000 / 1000 CONT .[id number] JUANY Rx#:[id number] Oral 840 / 840 840 / 840 720 / 720 Other: # Voids 2 1 # Bowel Movements 1 Narrative: GENERAL: 77 yo F, well nourished well developed, appears depressed, anxious at times. CARDIOVASCULAR: Regular rate and rhythm. RESPIRATORY: No accessory muscle use. Clear to auscultation. Breath sounds equal bilaterally. GASTROINTESTINAL: Abdomen soft, non-tender, nondistended. Hepatic and splenic margins not palpable. MUSCULOSKELETAL: Extremities without clubbing, cyanosis, or edema. No obvious deformities. NEUROLOGICAL: Awake and alert. No obvious cranial nerve deficits. Motor grossly within normal limits. Five out of 5 muscle strength in the arms and legs. Normal speech. PSYCHIATRIC: Appears depressed. Results - Labs CBC & Chem 7: 03/15/18 07:00 Laboratory Results - last 24 hr 03/15/18 07:00 Sodium 125 L Potassium 4.3 Chloride 92 L Carbon Dioxide 24.2 Anion Gap 9 BUN 7 Creatinine 0.45 L Estimated GFR Greater than 89 Random Glucose 104 Calcium 8.2 L D Assessment and Plan - Assessment (1) Adjustment disorder with depressed mood Code(s): F43.21 - Adjustment disorder with depressed mood Status: Acute - Plan Depression. Suicidal ideation -management per psychiatry team Chronic medical problems GERD, autoimmune hepatitis, hypertension monitor , restart home medications as appropriate. Do medication reconciliations. Recently seen at [facility] for dehydration. Incidental findings pituitary macroadenoma, underwent extensive work up at [facility]. Was seen by neurology Dr Gagnon , recommends follow up with CT scan in 2-3 months with her PCP as well as to follow up as OP with endocrinology. Patient without dizziness and no vision changes. Hyponatremia , Na at 134 on admission, sodium is trending down, encourage PO intake. Started on 0.9 NS IVF. Minimal improvement in Na. Will give NaCl 1gm one time. Water restriction. Regular diet / ensure. Consult dietitian, appreciate recommendations. Monitor closely Na level to prevent fast correction. Discussed with the patient, nurse
[2018-03-15] MEDS ORDERED: Sodium Chloride 1 GM Tablet PO ONE (16:30)
[2018-03-15] MEDS: Aluminum/Magnesium/Simethacone Susp 30 ML UDC PO PRN (17:32)
[2018-03-15 19:17] LABS: Anion Gap 11 meq/L (5-15); Blood Urea Nitrogen 8 mg/dL (7-18); Calcium 8.3 mg/dL (8.5-10.1); Carbon Dioxide 22.8 meq/L (21.0-32.0); Chloride 90 meq/L (98-107); Glomerular Filtration Rate Greater Than 89 mL/min (>89); Glucose,Random 108 mg/dL (74-106); Potassium 4.3 meq/L (3.5-5.1)
[2018-03-15 19:50] LABS: Sodium 124 meq/L (136-145)
[2018-03-16 06:22] LABS: Anion Gap 8 meq/L (5-15); Blood Urea Nitrogen 6 mg/dL (7-18); Calcium 7.9 mg/dL (8.5-10.1); Carbon Dioxide 25.2 meq/L (21.0-32.0); Chloride 93 meq/L (98-107); Glomerular Filtration Rate Greater Than 89 mL/min (>89); Glucose,Random 92 mg/dL (74-106); Potassium 4.4 meq/L (3.5-5.1); Sodium 126 meq/L (136-145)
[2018-03-16] MEDS: Sertraline 50 MG Tablet PO SCH (08:58)
[2018-03-16] MEDS: Vitamins A,C,E/Lutein/Minerals Tablet PO SCH ×2 (08:59→21:39)
[2018-03-16] MEDS: Sodium Chloride 0.9% 2 ML Flush BID IV.FLUSH SCH ×2 (09:00→21:39)
[2018-03-16] MEDS: Sodium Chloride 1 GM Tablet PO SCH ×2 (11:02→21:39)
[2018-03-16] MEDS: LORazepam 0.5 MG Tablet PO PRN (11:02)
[2018-03-16] MEDS: Sod Chloride 0.9% Inj 1,000 ML IV.CONT SCH ×2 (11:03→22:12)
--- NOTE | 2018-03-16 13:55 | P.PNPSY ---
Subjective Remarks: Patient was seen and case discussed with nursing. Today, patient is markedly improved. She appears less anxious and is more organized. Her sleep has improved with her second dose of Ativan last night. is at her side and does not have any concerns. She continues to be followed by the medical team for hyponatremia Mental Status Examination Appearance: Appropriate Consciousness: Alert Orientation: Person, Place, Date/Time Speech: Unremarkable Language: Adequate Fund of Knowledge: Inadequate Attention and Concentration: Easily distracted Memory: Impaired Mood: Sad, Anxious Affect: Anxious, Other (dysphoric) Thought Process & Associations: Tangential Thought Content: Derealization, Preoccupations Hallucination Type: None Delusion Type: None, Bizarre Suicidal Ideation: No (unreliable) Suicidal Plan: No Suicidal Intention: No Homicidal Ideation: No Homicidal Plan: No Homicidal Intention: No Insight: Poor Judgment: Poor Assessment and Plan - Assessment (1) Adjustment disorder with depressed mood Code(s): F43.21 - Adjustment disorder with depressed mood Status: Acute - Plan Plan: Patient continues with depressed mood and although denying any SI, is noted to be dysphoric with poor PO intake but made effort to participate in group. Increase sertraline to 100mg PO daily for depression, continue rest of medications and recommendations as per primary medical team. Encourage patient to increase nutritional intake. Discharge planning in progress. Justification for Continued Inpatient Stay: Patient would decompensate in a less restrictive setting
[2018-03-16 19:46] LABS: Anion Gap 9 meq/L (5-15); Blood Urea Nitrogen 8 mg/dL (7-18); Calcium 8.6 mg/dL (8.5-10.1); Carbon Dioxide 23.9 meq/L (21.0-32.0); Chloride 91 meq/L (98-107); Glomerular Filtration Rate Greater Than 89 mL/min (>89); Glucose,Random 90 mg/dL (74-106); Potassium 4.4 meq/L (3.5-5.1)
[2018-03-16 19:49] LABS: Sodium 124 meq/L (136-145)
--- NOTE | 2018-03-17 08:27 | P.PN ---
Subjective Interval history: Follow-up visit hyponatremia, dehydration, HTN. Patient seen and examined today. Reports he is doing okay. Concerned about fluid restriction. Discussed with patient why she is on fluid restriction but continues encouraged to eat her food. Verbalized understanding. Oriented to time, place. Denies pain and discomfort. Denies SOB/ dyspnea. Denies chest pain, palpitations, headaches, dizziness. Denies fevers, chills, n/v/d. Denies dysuria. Physical Exam Vital signs: Vital Signs 03/16/18 18:02 03/17/18 06:24 Temperature 97.5 F L 98 F Pulse Rate 83 83 Respiratory Rate 17 16 Blood Pressure 142/67 H 157/71 H Pulse Oximetry 93 L 97 Intake & Output 03/16/18 03/17/18 03/17/18 18:59 06:59 18:59 Intake Total 1480 / 1480 1318 / 1318 Balance 1480 / 1480 1318 / 1318 Weight 68.6 kg Intake: IV 1000 / 1000 958 / 958 NS Inj 1,000 ML @ 84 mls/hr IV. 1000 / 1000 958 / 958 CONT .[id number] [facility] Rx#:[id number] Oral 480 / 480 360 / 360 Other: # Voids 3 2 Narrative: GENERAL: This is a well-nourished, well-developed patient, in no apparent distress. SKIN: Warm and dry HEENT: Normocephalic. Pupils equal round and reactive. Nose without bleeding. Airway patent. NECK: Trachea midline. CARDIOVASCULAR: Regular rate and rhythm without murmurs, gallops, or rubs. RESPIRATORY: Clear to auscultation. Breath sounds equal bilaterally. No wheezes , rales, or rhonchi. GASTROINTESTINAL: Abdomen soft, non-tender, nondistended. Bowel Sounds normoactive x4. MUSCULOSKELETAL: Extremities without clubbing, cyanosis, or edema. NEUROLOGICAL: Awake and alert. No focal neuro deficit. Moves all extremities. Normal speech. Results - Labs CBC & Chem 7: 03/17/18 07:50 Laboratory Results - last 24 hr 03/16/18 19:01 Sodium 124 L* Potassium 4.4 Chloride 91 L Carbon Dioxide 23.9 Anion Gap 9 BUN 8 Creatinine 0.51 Estimated GFR Greater than 89 Random Glucose 90 Calcium 8.6 Assessment and Plan - Assessment (1) Adjustment disorder with depressed mood Code(s): F43.21 - Status: Acute - Plan atmartine is a 77-year-old female with past medical history of hypertension, GERD, macular degeneration left eye, autoimmune hepatitis, history of skin cancer, incidental findings of marked microadenoma on CT, recently treated for dehydration and altered mental status at [facility]. Depression, suicidal ideation -Managed by psychiatry team Hyponatremia -Sodium level on admission 134 and has been trending down -NA 126 -->124 -->126 -Continue IV fluids -Continue sodium tabs -Continue fluid restriction. This has been extensively discussed with patient. -Continue to monitor sodium levels -Check serum osmolality, check urine sodium, urine osmole, urine lites Macroadenoma -Incidental findings of pituitary microadenoma [facility], underwent extensive workup. -Seen by neurology in that hospital and recommends follow-up with CT scan in 2-3 months with her PCP as well as follow-up as outpatient with endocrinology. DVT prop ambulatory Code Status: Full code Discussed Condition With: Patient, nursing Discharge Planning: DC disposition by primary team
[2018-03-17] MEDS: Sertraline 50 MG Tablet PO SCH (08:32)
[2018-03-17] MEDS: Vitamins A,C,E/Lutein/Minerals Tablet PO SCH ×2 (08:32→20:14)
[2018-03-17] MEDS: Sodium Chloride 1 GM Tablet PO SCH ×2 (08:32→21:57)
[2018-03-17 08:36] LABS: Anion Gap 8 meq/L (5-15); Blood Urea Nitrogen 7 mg/dL (7-18); Calcium 8.3 mg/dL (8.5-10.1); Carbon Dioxide 25.2 meq/L (21.0-32.0); Chloride 93 meq/L (98-107); Glomerular Filtration Rate Greater Than 89 mL/min (>89); Glucose,Random 98 mg/dL (74-106); Potassium 4.2 meq/L (3.5-5.1); Sodium 126 meq/L (136-145)
[2018-03-17] MEDS: Sodium Chloride 0.9% 2 ML Flush BID IV.FLUSH SCH ×2 (09:53→20:15)
[2018-03-17] MEDS: LORazepam 0.5 MG Tablet PO PRN (10:08)
[2018-03-17] MEDS: Sod Chloride 0.9% Inj 1,000 ML IV.CONT SCH ×2 (10:26→21:57)
[2018-03-17] MEDS: Carboxymethylcellulose 0.5% Opth Drops 15 ML Bottle EACH EYE PRN (13:40)
--- NOTE | 2018-03-17 14:25 | P.CON ---
History of Present Illness Primary Care Provider: UNKNOWN History of Present Illness: 77 yo F who was admitted under [facility] for suicidal ideation/attempt. Was found to have an incidental pituitary macroadenoma on an admission to [facility] recently. Patient states her vision has been a little blurry since coming to [place]. Ocular history significant for cataract surgery OU (by Dr.Tim Patel), and wet macular degeneration OU (with injections by Dr.Karl Alberto) . [facility] - History History Provided By: Patient, Family Member, Medical Record - Medical History Medical History: Medical History (Last Reviewed 03/11/18 @ 19:09 by Carmen Morelos MD) Altered mental status Autoimmune hepatitis Dehydration GERD (gastroesophageal reflux disease) History of skin cancer Hypertension Suicidal ideation - Tobacco History Second Hand Smoke Exposure: No Smoking Status: Never smoker - Alcohol History How Often Do You Have a Drink Containing Alcohol: Monthly or less - Substance Use History Substance History: No History of Abuse - Travel History Recent Travel in the [place] Within the Last 8 Weeks: No Recent Travel Out of the Country Within the Last 8 Weeks: No Medications and Allergies Active Medications: Active Medications Acetaminophen (Tylenol) 650 mg PO Q4H PRN PRN Reason: PAIN 1-5 OR TEMP > 101 Al Hydrox/Mg Hydrox/Simethicone (Mag-Al Plus Susp Liq) 30 ml PO Q6H PRN PRN Reason: DYSPEPSIA Last Admin: 03/15/18 17:32 Dose: 30 ml Al Hydroxide/Mg Hydroxide (Milk Of Magnesia Liq) 30 ml PO DAILY PRN PRN Reason: CONSTIPATION Artificial Tears (Refresh Tears 0.5% Opth Drops) 1 drop EACH EYE UNSCH PRN PRN Reason: EYE IRRITATION Last Admin: 03/17/18 13:40 Dose: 1 drop Diphenhydramine HCl (Benadryl) 50 mg PO HS [facility] Last Admin: 03/16/18 21:39 Dose: 50 mg Sodium Chloride (Ns Inj) 1,000 mls @ 84 mls/hr IV.CONT .[id number] [facility] Last Admin: 03/17/18 10:26 Dose: 84 mls/hr Lorazepam (Ativan) 0.5 mg PO Q12H PRN PRN Reason: MOD TO SEVERE ANXIETY Last Admin: 03/17/18 10:08 Dose: 0.5 mg Lorazepam (Ativan Inj) 0.5 mg IM Q12H PRN PRN Reason: MOD TO SEVERE ANXIETY Miscellaneous (Pill Splitter) 1 each OTHER UNSCH PRN PRN Reason: SEE LABEL COMMENTS Multivitamins (Theragran) 1 tab PO DAILY [facility] Last Admin: 03/17/18 08:32 Dose: 1 tab Multivitamins/Minerals (Ocuvite With Lutein) 1 tab PO BID [facility] Last Admin: 03/17/18 08:32 Dose: 1 tab Sertraline HCl (Zoloft) 50 mg PO DAILY [facility] Last Admin: 03/17/18 08:32 Dose: 50 mg Sodium Chloride (Ns Flush) 2 ml IV.FLUSH BID [facility] Last Admin: 03/17/18 09:53 Dose: Not Given Sodium Chloride (Ns Flush) 2 ml IV.FLUSH PRN PRN PRN Reason: FLUSH AFTER USING IV ACCESS Sodium Chloride (Sodium Chloride) 1 gm PO BID [facility] Last Admin: 03/17/18 08:32 Dose: 1 gm Allergies Allergy/AdvReac Type Severity Reaction Status Date / Time mafenide [From Sulfamylon] Allergy Anaphylaxis Verified 03/11/18 01:08 Sulfa (Sulfonamide Allergy Anaphylaxis Verified 03/11/18 01:03 Antibiotics) sulfabenzamide Allergy Anaphylaxis Verified 03/11/18 01:08 sulfacetamide Allergy Anaphylaxis Verified 03/11/18 01:08 sulfacytine Allergy Anaphylaxis Verified 03/11/18 01:08 sulfadiazine Allergy Anaphylaxis Verified 03/11/18 01:08 sulfadimethoxine Allergy Anaphylaxis Verified 03/11/18 01:08 sulfadoxine Allergy Anaphylaxis Verified 03/11/18 01:08 sulfaguanidine Allergy Anaphylaxis Verified 03/11/18 01:08 sulfalene Allergy Anaphylaxis Verified 03/11/18 01:08 sulfamerazine Allergy Anaphylaxis Verified 03/11/18 01:08 sulfameter Allergy Anaphylaxis Verified 03/11/18 01:08 sulfamethazine Allergy Anaphylaxis Verified 03/11/18 01:08 sulfamethizole Allergy Anaphylaxis Verified 03/11/18 01:08 sulfamethoxazole Allergy Anaphylaxis Verified 03/11/18 01:01 [From Bactrim] sulfamethoxypyridazine Allergy Anaphylaxis Verified 03/11/18 01:08 sulfametrole Allergy Anaphylaxis Verified 03/11/18 01:08 sulfamoxole Allergy Anaphylaxis Verified 03/11/18 01:08 sulfanilamide Allergy Anaphylaxis Verified 03/11/18 01:08 sulfaphenazole Allergy Anaphylaxis Verified 03/11/18 01:08 sulfapyridine Allergy Anaphylaxis Verified 03/11/18 01:08 sulfasalazine Allergy Anaphylaxis Verified 03/11/18 01:08 sulfathiazole Allergy Anaphylaxis Verified 03/11/18 01:08 sulfur [From Sulfacet-R] Allergy Anaphylaxis Verified 03/11/18 01:08 trimethoprim [From Bactrim] Allergy Anaphylaxis Verified 03/11/18 01:01 Home Medications Medication Instructions Recorded Confirmed Type Systane (propylene glycol) See Label Instructions .ROUTE 03/11/18 03/11/18 History .COMPLEX PRN vit C,C-Pb-zswxa-lutein-zeaxan BID 03/11/18 History [PreserVision AREDS-2] Physical Exam Vital signs: Vital Signs 03/16/18 18:02 03/17/18 06:24 Temperature 97.5 F L 98 F Pulse Rate 83 83 Respiratory Rate 17 16 Blood Pressure 142/67 H 157/71 H Pulse Oximetry 93 L 97 Intake & Output 03/16/18 03/17/18 03/17/18 18:59 06:59 18:59 Intake Total 1480 / 1480 1318 / 1318 1600 / 1600 Balance 1480 / 1480 1318 / 1318 1600 / 1600 Weight 68.6 kg Intake: IV 1000 / 1000 958 / 958 1000 / 1000 NS Inj 1,000 ML @ 84 mls/hr IV. 1000 / 1000 958 / 958 1000 / 1000 CONT .[id number] [facility] Rx#:[id number] Oral 480 / 480 360 / 360 600 / 600 Other: # Voids 3 2 - Detailed Eye Exam Comments: Va cc at near OD 20/70, OS 20/800 EOM full OU, no diplopia CVF full OD, unable OS Pupils 2-1 no APD OU IOP normal to palpation OU Anterior exam OD - normal eyelid, C/S W&Q, K clear, AC deep, pupil round, PCIOL OS - normal eyelid, C/S W&Q, K clear, AC deep, pupil round, PCIOL Assessment and Plan - Assessment (1) Exudative age-related macular degeneration of both eyes with active choroidal neovascularization Code(s): H35.3231 - Exudative age-related macular degeneration, bilateral, with active choroidal neovascularization Status: Acute Plan: Has been getting anti-VEGF injections in both eyes by Dr. Gm Alberto - follow up as scheduled. (2) Pseudophakia of both eyes Code(s): Z96.1 - Presence of intraocular lens Status: Acute Plan: Recently got a new glasses prescription from her outpatient guest services assistant, Dr.Tim Patel. Has not gotten the new glasses yet. (3) Pituitary adenoma Code(s): D35.2 - Benign neoplasm of pituitary gland Status: Acute Plan: Follow up with to get a Tena visual field as an outpatient once discharged.
--- NOTE | 2018-03-17 17:25 | P.PNPSY ---
Subjective Remarks: Reviewed electronic medical records and discussed case with staff. Follow-up was conducted in patient's room with nurse present. Nurse reports she has been demanding and entitled. Patient found sitting up in bed with her tray of uneaten food in front of her. She states that she took an Ativan and "it knocked me for a loop". The Ativan in question was 0.5 mg given at 10:00 this morning. I have decreased her Ativan p.o. dosage to 0.25. She reports that her mood is "not good" and that she did not sleep last night. She states that "all of this is overwhelming". She appears very dysphoric. Mental Status Examination Appearance: Appropriate Consciousness: Alert Orientation: Person, Place, Date/Time Speech: Unremarkable Language: Adequate Fund of Knowledge: Inadequate Attention and Concentration: Easily distracted Memory: Impaired Mood: Sad, Anxious Affect: Anxious, Other (dysphoric) Thought Process & Associations: Tangential Thought Content: Derealization, Preoccupations Hallucination Type: None Delusion Type: None, Bizarre Suicidal Ideation: No (unreliable) Suicidal Plan: No Suicidal Intention: No Homicidal Ideation: No Homicidal Plan: No Homicidal Intention: No Insight: Poor Judgment: Poor Assessment and Plan - Assessment (1) Adjustment disorder with depressed mood Code(s): F43.21 - Adjustment disorder with depressed mood Status: Acute - Plan Plan: Patient will be reevaluated tomorrow by the attending psychiatrist. Continue with current treatment plan. Justification for Continued Inpatient Stay: Moving this patient to a less restrictive environment would likely result in decompensation.
[2018-03-18 07:56] LABS: Anion Gap 9 meq/L (5-15); Blood Urea Nitrogen 6 mg/dL (7-18); Calcium 8.2 mg/dL (8.5-10.1); Carbon Dioxide 23.6 meq/L (21.0-32.0); Chloride 93 meq/L (98-107); Glomerular Filtration Rate Greater Than 89 mL/min (>89); Glucose,Random 97 mg/dL (74-106); Sodium 126 meq/L (136-145)
[2018-03-18] MEDS: Sodium Chloride 0.9% 2 ML Flush BID IV.FLUSH SCH ×2 (08:15→21:09)
[2018-03-18] MEDS: Sodium Chloride 1 GM Tablet PO SCH ×2 (08:15→21:09)
[2018-03-18] MEDS: Sertraline 50 MG Tablet PO SCH (08:15)
[2018-03-18] MEDS: Vitamins A,C,E/Lutein/Minerals Tablet PO SCH ×2 (08:16→21:09)
[2018-03-18] MEDS: Sod Chloride 0.9% Inj 1,000 ML IV.CONT SCH (08:32)
--- NOTE | 2018-03-18 08:55 | P.PN ---
Subjective Interval history: Follow-up visit hyponatremia, dehydration, HTN. Patient seen and examined today. Patient indicates she gets full after eating, mild nausea. Denies any heartburn. No abdominal pain. States that her stools are firm, requesting stool softener. No chest pain, no shortness of breath. No fever, no chills. Eating okay, maintaining fluid restriction. Physical Exam Vital signs: Vital Signs 03/17/18 18:20 03/18/18 05:15 Temperature 97.7 F 97.1 F L Pulse Rate 72 87 Respiratory Rate 17 Blood Pressure 162/72 H 178/78 H Pulse Oximetry 97 96 Intake & Output 03/17/18 03/18/18 03/18/18 18:59 06:59 18:59 Intake Total 2320 / 2320 1360 / 1360 1000 / 1000 Balance 2320 / 2320 1360 / 1360 1000 / 1000 Intake: IV 1000 / 1000 1000 / 1000 1000 / 1000 NS Inj 1,000 ML @ 84 mls/hr IV. 1000 / 1000 1000 / 1000 1000 / 1000 CONT .[id number] [facility] Rx#:[id number] Oral 1320 / 1320 360 / 360 Other: # Voids 2 2 Date of Last Bowel Movement 03/17/18 # Bowel Movements 0 0 Narrative: GENERAL: This is a well-nourished, well-developed patient, in no apparent distress. SKIN: Warm and dry HEENT: Normocephalic. Pupils equal round and reactive. Nose without bleeding. Airway patent. NECK: Trachea midline. CARDIOVASCULAR: Regular rate and rhythm without murmurs, gallops, or rubs. RESPIRATORY: Clear to auscultation. Breath sounds equal bilaterally. No wheezes , rales, or rhonchi. GASTROINTESTINAL: Abdomen soft, non-tender, nondistended. Bowel Sounds normoactive x4. MUSCULOSKELETAL: Extremities without clubbing, cyanosis, or edema. NEUROLOGICAL: Awake and alert. No focal neuro deficit. Moves all extremities. Normal speech. Results - Labs CBC & Chem 7: 03/18/18 07:15 Laboratory Results - last 24 hr 03/17/18 03/18/18 11:49 07:15 Sodium 126 L Potassium 4.0 Chloride 93 L Carbon Dioxide 23.6 Anion Gap 9 BUN 6 L Creatinine 0.36 L Estimated GFR Greater than 89 Random Glucose 97 Osmolality 259 L Calcium 8.2 L Assessment and Plan - Assessment (1) Adjustment disorder with depressed mood Code(s): F43.21 - Adjustment disorder with depressed mood Status: Acute (2) Hyponatremia Code(s): E87.1 - Hypo-osmolality and hyponatremia Status: Acute (3) Pituitary adenoma Code(s): D35.2 - Benign neoplasm of pituitary gland Status: Chronic - Plan Patient is a 77-year-old female with past medical history of hypertension, GERD , macular degeneration left eye, autoimmune hepatitis, history of skin cancer, incidental findings of marked microadenoma on CT, recently treated for dehydration and altered mental status at [facility]. Depression, suicidal ideation -Managed by psychiatry team Hyponatremia -Sodium level on admission 134 and has been trending down -NA 126 -->124 -->126-->126 -DC IVF -Continue sodium tabs 1 gram BID -Continue fluid restriction. This has been extensively discussed with patient. -Continue to monitor sodium levels -Urine osmolarity 259 -Urine sodium, urine lytes still pending. We will discuss with RN to collect. Macroadenoma -Incidental findings of pituitary microadenoma [facility], underwent extensive workup. -Seen by neurology in that hospital and recommends follow-up with CT scan in 2-3 months with her PCP as well as follow-up as outpatient with endocrinology. Early satiety, c/o nausea Constipation -zofran PRN -will avoid Reglan due to interactions with SSRI for now. -Add stool softener DVT prop ambulatory
[2018-03-18] MEDS: Docusate Sodium 100 MG Capsule PO SCH ×2 (10:18→21:09)
[2018-03-18] MEDS: LORazepam 0.5 MG Tablet PO PRN (10:18)
[2018-03-18] MEDS: Carboxymethylcellulose 0.5% Opth Drops 15 ML Bottle EACH EYE PRN (10:19)
[2018-03-18] MEDS: Aluminum/Magnesium/Simethacone Susp 30 ML UDC PO PRN (11:50)
--- NOTE | 2018-03-18 16:38 | P.PNPSY ---
Subjective Remarks: Patient seen for follow up, chart reviewed. Discussion with nursing staff reported patient on fluid restrictions by medical team, family visited, noted with improved affect, continues depressed, has not attended further groups. Patient was found lying on hospital bed, noted with more affect and improved eye contact. Patient states that she had been visited by her family, continues to be anxious of getting better and continues with feeling overwhelmed and depressed but denying any SI. She states she believes she is doing better. Denies SI, HI AVH or delusions. Review of Systems All other systems reviewed negative except as stated in HPI Mental Status Examination Appearance: Appropriate Consciousness: Alert Orientation: Person, Place, Date/Time Speech: Unremarkable Language: Adequate Fund of Knowledge: Inadequate Attention and Concentration: Easily distracted Memory: Impaired Mood: Sad, Anxious Affect: Anxious, Other (dysphoric but lessening) Thought Process & Associations: Tangential Thought Content: Derealization, Preoccupations Hallucination Type: None Delusion Type: None Suicidal Ideation: No (unreliable) Suicidal Plan: No Suicidal Intention: No Homicidal Ideation: No Homicidal Plan: No Homicidal Intention: No Insight: Poor Judgment: Poor Assessment and Plan - Assessment (1) Adjustment disorder with depressed mood Code(s): F43.21 - Adjustment disorder with depressed mood Status: Acute - Plan Plan: Patient noted with improved affect, continues with depressed mood but denying any SI. Patient continues with limited participation in groups. Will increase sertraline to 100mg PO daily, continue rest of medications. Continue recommendations as per primary medical team. Encourage patient to improve nutritional intake and participate in groups and activities. Discharge planning in progress. Justification for Continued Inpatient Stay: At risk for further decompensation at lower level of care.
[2018-03-18 17:37] LABS: Chloride,Urine Random 109 meq/L
[2018-03-19] MEDS: Sodium Chloride 0.9% 2 ML Flush BID IV.FLUSH SCH ×2 (08:15→21:00)
[2018-03-19] MEDS: Docusate Sodium 100 MG Capsule PO SCH ×2 (08:15→21:00)
[2018-03-19] MEDS: Sertraline 100 MG Tablet PO SCH (08:16)
[2018-03-19] MEDS: Vitamins A,C,E/Lutein/Minerals Tablet PO SCH ×2 (08:16→21:00)
[2018-03-19] MEDS: Sodium Chloride 1 GM Tablet PO SCH ×2 (08:16→21:00)
[2018-03-19] MEDS: Carboxymethylcellulose 0.5% Opth Drops 15 ML Bottle EACH EYE PRN (08:22)
--- NOTE | 2018-03-19 09:19 | P.PN ---
Subjective Interval history: Follow-up visit hyponatremia, dehydration, HTN. Patient seen and examined today. Sitting up in bed, improved affect, eating well. Feels anxious today, noted with tremors. Denies any CP, no sob, no fever , no chills. No N/V/D. Had loose stool. Maintaining fluid restriction. Physical Exam Vital signs: Vital Signs 03/18/18 18:00 03/19/18 06:00 Temperature 98.5 F 97.7 F Pulse Rate 77 85 Respiratory Rate 18 16 Blood Pressure 138/58 L 163/75 H Pulse Oximetry 96 96 Intake & Output 03/18/18 03/19/18 03/19/18 18:59 06:59 18:59 Intake Total 3630 / 3630 240 / 240 Output Total 300 / 300 Balance 3330 / 3330 240 / 240 Intake: IV 1999 NS Inj 1,000 ML @ 84 mls/hr IV. 1999 CONT .[id number] [facility] Rx#:[id number] Oral 1430 / 1430 240 / 240 Other 200 / 200 Output: Urine 300 / 300 Other: Other Intake Source Saline Solution # Voids 4 Date of Last Bowel Movement 03/18/18 Narrative: GENERAL: This is a well-nourished, well-developed patient, in no apparent distress. SKIN: Warm and dry HEENT: Normocephalic. Pupils equal round and reactive. Nose without bleeding. Airway patent. NECK: Trachea midline. CARDIOVASCULAR: Regular rate and rhythm without murmurs, gallops, or rubs. RESPIRATORY: Clear to auscultation. Breath sounds equal bilaterally. No wheezes , rales, or rhonchi. GASTROINTESTINAL: Abdomen soft, non-tender, nondistended. Bowel Sounds normoactive x4. MUSCULOSKELETAL: Extremities without clubbing, cyanosis, or edema. NEUROLOGICAL: Awake and alert. No focal neuro deficit. Moves all extremities. Normal speech. PSYCH: Anxious, tremulous. Results - Labs CBC & Chem 7: 03/19/18 08:07 Laboratory Results - last 24 hr 03/18/18 03/18/18 16:40 16:40 Urine Osmolality 433 Ur Random Sodium 94 Ur Random Potassium 22 Ur Random Chloride 109 Assessment and Plan - Assessment (1) Adjustment disorder with depressed mood Code(s): F43.21 - Adjustment disorder with depressed mood Status: Acute (2) Hyponatremia Code(s): E87.1 - Hypo-osmolality and hyponatremia Status: Acute (3) Pituitary adenoma Code(s): D35.2 - Benign neoplasm of pituitary gland Status: Chronic - Plan Patient is a 77-year-old female with past medical history of hypertension, GERD , macular degeneration left eye, autoimmune hepatitis, history of skin cancer, incidental findings of marked microadenoma on CT, recently treated for dehydration and altered mental status at [facility]. Depression, suicidal ideation -Managed by psychiatry team Hyponatremia -Sodium level on admission 134 and has been trending down -NA 126 -->124 -->126-->126-->125 -restart NS at 84/hr. -Continue sodium tabs 1 gram BID -Continue fluid restriction. This has been extensively discussed with patient. -Continue to monitor sodium levels -Urine osmolarity 259 -Urine sodium, urine lytes results noted. Macroadenoma -Incidental findings of pituitary microadenoma [facility], underwent extensive workup. -Seen by neurology in that hospital and recommends follow-up with CT scan in 2-3 months with her PCP as well as follow-up as outpatient with endocrinology. Early satiety, c/o nausea-sx better today Constipation -resolved -zofran PRN -will avoid Reglan due to interactions with SSRI for now. -Colace BID DVT prop ambulatory repeat BMP in am Code Status: Full code Discussed Condition With: RN, pt. Discharge Planning: DC planning per Primary Care team
[2018-03-19 09:20] LABS: Anion Gap 9 meq/L (5-15); Blood Urea Nitrogen 8 mg/dL (7-18); Carbon Dioxide 25.6 meq/L (21.0-32.0); Chloride 90 meq/L (98-107); Glomerular Filtration Rate Greater Than 89 mL/min (>89); Glucose,Random 113 mg/dL (74-106); Potassium 3.9 meq/L (3.5-5.1); Sodium 125 meq/L (136-145)
[2018-03-19] MEDS: Sod Chloride 0.9% Inj 1,000 ML IV.CONT SCH ×2 (10:50→22:45)
[2018-03-19] MEDS: LORazepam 0.5 MG Tablet PO PRN (10:52)
--- NOTE | 2018-03-19 11:41 | P.PNPSY ---
Subjective Remarks: Patient seen for follow up; chart reviewed. Discussion with nursing staff reported that patient continues report feeling depressed, denying suicide ideations, was able to participate in some group with encouragement. Patient was found lying hospital bed noted B, cooperative noted be anxious due to the possibility of having to present to mental health court. Patient agreed to sign voluntary and agreed to continue treatment. Patient states "I do not know if I am going to get better" referring to her nutritional intake in her perceived bodily functions referring to bowel movements. Patient continues report poor sleep, reports her mood is "not good" and feeling anxious about the future. Patient states looks forward to returning home to her life and her family. Patient denies any suicide ideations at this time but did report having "dark thoughts" stating that she feels that she is a burden to her family and that she is going to ruin her family's finances. Head Of Quality met with patient's daughter and and reviewed patient's current progression with treatment as well as recommendations of patient requiring further stabilization although has made some improvement and denying any suicide ideations at this time. Review of Systems All other systems reviewed negative except as stated in HPI Mental Status Examination Appearance: Appropriate Consciousness: Alert Orientation: Person, Place, Date/Time Speech: Unremarkable Language: Adequate Fund of Knowledge: Inadequate Attention and Concentration: Easily distracted Memory: Impaired Mood: Sad, Anxious Affect: Anxious, Other (dysphoric but lessening) Thought Process & Associations: Tangential Thought Content: Preoccupations Hallucination Type: None Delusion Type: None Suicidal Ideation: No (unreliable) Suicidal Plan: No Suicidal Intention: No Homicidal Ideation: No Homicidal Plan: No Homicidal Intention: No Insight: Poor Judgment: Poor Assessment and Plan - Assessment (1) Adjustment disorder with depressed mood Code(s): F43.21 - Adjustment disorder with depressed mood Status: Acute - Plan Plan: Patient continues with depressed mood with denying any suicide ideations. Patient noted to be anxious about wanting to recover. We will continue sertraline at 100 mg p.o. daily for depression, we will change lorazepam to a scheduled dose of 0.25 mg p.o. twice daily, will discontinue diphenhydramine has had limited response and start patient on temazepam 7.5 mg at bedtime for sleep disturbance. We will continue to monitor mood and behavior. Patient will be now under voluntary admission at this time has capacity to consent for treatment. We will continue to encourage patient to participate in groups and activities and improve nutritional intake. Hospitalist input appreciated. Continue recommendations per primary medical team. Discharge planning in progress. Justification for Continued Inpatient Stay: At risk of further decompensation a lower level care
[2018-03-19] MEDS: LORazepam 0.5 MG Tablet PO SCH ×2 (14:07→21:00)
[2018-03-20 08:10] LABS: Anion Gap 9 meq/L (5-15); Blood Urea Nitrogen 13 mg/dL (7-18); Calcium 8.7 mg/dL (8.5-10.1); Carbon Dioxide 26.9 meq/L (21.0-32.0); Chloride 93 meq/L (98-107); Glomerular Filtration Rate Greater Than 89 mL/min (>89); Glucose,Random 87 mg/dL (74-106); Sodium 129 meq/L (136-145)
[2018-03-20] MEDS: Vitamins A,C,E/Lutein/Minerals Tablet PO SCH ×2 (08:28→21:30)
[2018-03-20] MEDS: Sertraline 100 MG Tablet PO SCH (08:28)
[2018-03-20] MEDS: LORazepam 0.5 MG Tablet PO SCH ×2 (08:28→21:30)
[2018-03-20] MEDS: Docusate Sodium 100 MG Capsule PO SCH ×2 (08:28→21:30)
[2018-03-20] MEDS: Sodium Chloride 1 GM Tablet PO SCH ×2 (08:29→21:30)
[2018-03-20] MEDS: Sodium Chloride 0.9% 2 ML Flush BID IV.FLUSH SCH ×2 (08:29→21:41)
[2018-03-20] MEDS: Carboxymethylcellulose 0.5% Opth Drops 15 ML Bottle EACH EYE PRN (08:37)
[2018-03-20] MEDS: Sod Chloride 0.9% Inj 1,000 ML IV.CONT SCH (11:27)
--- NOTE | 2018-03-20 11:52 | P.PNPSY ---
Subjective Remarks: Patient seen for follow up; chart reviewed. Discussion with nursing staff reported patient continues report depressed but slept well last night and has continued difficulty with nutritional intake. Patient was found sitting hospital chair noted with bright affect, smiling. Patient states that he she slept well last night she was happy about, reports feeling that she is eating better. Patient is attending groups and states her mood is "pretty good" stating that she is more positive today denying any suicidal homicidal ideations at this time. Review of Systems All other systems reviewed negative except as stated in HPI Mental Status Examination Appearance: Appropriate Consciousness: Alert Orientation: Person, Place, Date/Time Speech: Unremarkable Language: Adequate Fund of Knowledge: Inadequate Attention and Concentration: Easily distracted Memory: Impaired Mood: Sad, Anxious Affect: Appropriate, Anxious (Less so today) Thought Process & Associations: Linear Thought Content: Preoccupations Hallucination Type: None Delusion Type: None Suicidal Ideation: No (unreliable) Suicidal Plan: No Suicidal Intention: No Homicidal Ideation: No Homicidal Plan: No Homicidal Intention: No Insight: Poor Judgment: Poor Assessment and Plan - Assessment (1) Adjustment disorder with depressed mood Code(s): F43.21 - Adjustment disorder with depressed mood Status: Acute - Plan Plan: Patient with improved affect today, slept well last evening. We will continue current treatment. We will continue to monitor mood and behavior. We will continue recommendations as per prior medical team. Continue encouraged to maintain adequate p.o. intake as well as participate in groups and activities while on the unit. Discharge planning a progress. Justification for Continued Inpatient Stay: At risk of further decompensation a lower level care.
--- NOTE | 2018-03-20 13:30 | P.PN ---
Subjective Interval history: Follow-up visit hyponatremia, dehydration, HTN. Patient seen and examined today. Ambulating around hallway with walker and contact-guard. Minimal tremors today, anxiety improved. Was noted with a stage I pressure area to buttocks, does not like to turn in bed. RN applied barrier cream. Requesting something to help move her bowels. No chest pain, no shortness of breath. Compliant with fluid restriction. Physical Exam Vital signs: Vital Signs 03/19/18 18:00 03/20/18 06:00 Temperature 97.5 F L 97.4 F L Pulse Rate 86 87 Respiratory Rate 18 16 Blood Pressure 153/66 H 145/68 H Pulse Oximetry 95 96 Intake & Output 03/19/18 03/20/18 03/20/18 18:59 06:59 18:59 Intake Total 720 / 720 540 / 540 240 / 240 Balance 720 / 720 540 / 540 240 / 240 Weight 68.2 kg Intake: Oral 720 / 720 540 / 540 240 / 240 Other: # Voids 2 1 Date of Last Bowel Movement 03/18/18 03/18/18 # Bowel Movements 0 Narrative: GENERAL: This is a well-nourished, well-developed patient, in no apparent distress. SKIN: Excoriated skin between buttocks HEENT: Normocephalic. Pupils equal round and reactive. Nose without bleeding. Airway patent. NECK: Trachea midline. CARDIOVASCULAR: Regular rate and rhythm without murmurs, gallops, or rubs. RESPIRATORY: Clear to auscultation. Breath sounds equal bilaterally. No wheezes , rales, or rhonchi. GASTROINTESTINAL: Abdomen soft, non-tender, nondistended. Bowel Sounds normoactive x4. MUSCULOSKELETAL: Extremities without clubbing, cyanosis, or edema. NEUROLOGICAL: Awake and alert. No focal neuro deficit. Moves all extremities. Normal speech. PSYCH: Less tremulous, depressed affect Results - Labs CBC & Chem 7: 03/20/18 07:19 Laboratory Results - last 24 hr 03/20/18 07:19 Sodium 129 L Potassium 4.0 Chloride 93 L Carbon Dioxide 26.9 Anion Gap 9 BUN 13 Creatinine 0.58 Estimated GFR Greater than 89 Random Glucose 87 Calcium 8.7 Assessment and Plan - Assessment (1) Adjustment disorder with depressed mood Code(s): F43.21 - Adjustment disorder with depressed mood Status: Acute (2) Hyponatremia Code(s): E87.1 - Hypo-osmolality and hyponatremia Status: Acute (3) Pituitary adenoma Code(s): D35.2 - Benign neoplasm of pituitary gland Status: Chronic - Plan Patient is a 77-year-old female with past medical history of hypertension, GERD , macular degeneration left eye, autoimmune hepatitis, history of skin cancer, incidental findings of marked microadenoma on CT, recently treated for dehydration and altered mental status at [facility]. Depression, suicidal ideation -Managed by psychiatry team Hyponatremia -Sodium level on admission 134 and has been trending down -NA 126 -->124 -->126-->126-->125-->129 -Okay to stop IV fluid -Continue sodium tabs 1 gram BID -Continue fluid restriction. This has been extensively discussed with patient. -Continue to monitor sodium levels -Urine osmolarity 259 -Urine sodium, urine lytes results noted. Macroadenoma -Incidental findings of pituitary microadenoma [facility], underwent extensive workup. -Seen by neurology in that hospital and recommends follow-up with CT scan in 2-3 months with her PCP as well as follow-up as outpatient with endocrinology. Early satiety, c/o nausea-sx better today Constipation -resolved -zofran PRN -will avoid Reglan due to interactions with SSRI for now. -Colace BID Noted with elevated blood pressure, 160s. Patient has history of hypertension, not on medications at home. We will start Norvasc 5 mg p.o. daily DVT prop ambulatory Follow BMP in the morning, sodium continues to improve Code Status: Full code Discussed Condition With: RN, patient Discharge Planning: DC planning per Primary Care team
[2018-03-21] MEDS: LORazepam 0.5 MG Tablet PO SCH ×2 (08:24→21:17)
[2018-03-21] MEDS: amLODIPine 5 MG Tablet PO SCH (08:24)
[2018-03-21] MEDS: Vitamins A,C,E/Lutein/Minerals Tablet PO SCH ×2 (08:24→21:17)
[2018-03-21] MEDS: Sodium Chloride 1 GM Tablet PO SCH (08:24)
[2018-03-21] MEDS: Docusate Sodium 100 MG Capsule PO SCH ×2 (08:24→21:17)
[2018-03-21] MEDS: Sertraline 100 MG Tablet PO SCH (08:24)
[2018-03-21] MEDS: Sodium Chloride 0.9% 2 ML Flush BID IV.FLUSH SCH ×2 (08:25→21:18)
[2018-03-21 08:31] LABS: Anion Gap 7 meq/L (5-15); Blood Urea Nitrogen 15 mg/dL (7-18); Calcium 9.1 mg/dL (8.5-10.1); Carbon Dioxide 29.9 meq/L (21.0-32.0); Chloride 95 meq/L (98-107); Glomerular Filtration Rate Greater Than 89 mL/min (>89); Glucose,Random 95 mg/dL (74-106); Potassium 4.4 meq/L (3.5-5.1); Sodium 132 meq/L (136-145)
[2018-03-21] MEDS: Carboxymethylcellulose 0.5% Opth Drops 15 ML Bottle EACH EYE PRN (08:40)
[2018-03-21] MEDS ORDERED: Polyethylene Glycol 3350 17 GM Packet PO PRN (08:46)
--- NOTE | 2018-03-21 11:00 | P.PNPSY ---
Subjective Remarks: Patient seen for follow up; chart reviewed. Discussion with nursing staff reported that patient has been up out of bed more, noted to have brighter affect , also noted to have stage I pressure ulcer. Patient was found sitting in hospital chair noted B, cooperative. Patient states that she had disturbed states that last night as a nurses for assisting with having her turn and distribute her weight while lying down to avoid aggravating the pressure ulcer at this time. She states her mood has been "good" stating that she is feeling better and that she is improving her appetite and attending groups. Patient denies any suicide ideations at this time. Patient reports feeling more hopeful today. Review of Systems All other systems reviewed negative except as stated in HPI Mental Status Examination Appearance: Appropriate Consciousness: Alert Orientation: Person, Place, Date/Time Speech: Unremarkable Language: Adequate Fund of Knowledge: Inadequate Attention and Concentration: Easily distracted Memory: Impaired Mood: Sad (Lessening), Anxious (Lessening) Affect: Appropriate Thought Process & Associations: Goal directed, Linear Thought Content: Preoccupations (Lessening) Hallucination Type: None Delusion Type: None Suicidal Ideation: No Suicidal Plan: No Suicidal Intention: No Homicidal Ideation: No Homicidal Plan: No Homicidal Intention: No Insight: Poor Judgment: Poor Assessment and Plan - Assessment (1) Adjustment disorder with depressed mood Code(s): F43.21 - Adjustment disorder with depressed mood Status: Acute - Plan Plan: Patient continues to be noted with improved mood, sodium levels are improving, continue recommendations as her prior medical team. Patient denies any suicide ideation at this time, and noted to be participating more in groups and activities. We will continue current treatment. We will continue to monitor mood and behavior. Discharge planning in progress. Justification for Continued Inpatient Stay: At risk of further decompensation a lower level of care.
--- NOTE | 2018-03-21 12:58 | P.TTN ---
- Patient Problems Problems: 1. Discharge planning 2. Medication compliance 3. Knowledge deficit 4. Lack of coping skills - Progress Toward Goals Provider Present: Dr. Caden Luna Provider Input: 03/19/18: Pt scheduled for court on 03/20; pt continues to present with significant depression, it is reported to MD that pt has been increasing her participation in activities which decreases her isolative time. Pt's mood, movement have increased. No changes to psych medications and other medical tx needs continue. Psychiatric Counselors Present: Paul Portillo Jr., [facility] Psychiatric Therapist Input: OTR; Rip; reports that pt is attending more groups to greater lengths of time and pt is continuing to ambulate out of room with PT and with family, using rw, pt's mood is lifting. Group Spec/RT/OT/NORIEGA Present: Daria Arteaga, GPS, Rip Lees, OT Group Spec/RT/OT/NORIEGA Input: 03/19/18: pt has been attending exercise and fresh air groups, she recently attended spirituality. Pt has been more conversive with others. Occupational Therapist Input: 03/19/18: Pt has been educated and has been involved with interactions with other staff and patients. Pt has been increasing her level of independence with self care and ADLS, she continues to be visited with daily regularity by family, her depressed mood is lifting though slowly. Pt has made significant progress with her interactions with others, with her acceptance and with her initiation of self motivation. Additional Input: 03/19/18: Pt is expected to return home to live with her spouse, pt to be at of. Pt is expected to discharge within days. - Documentation Teaching Recipient: Patient
--- NOTE | 2018-03-21 13:09 | P.PN ---
Subjective Interval history: Follow-up visit hyponatremia, dehydration, HTN. Patient seen and examined today. Eating breakfast, has a good appetite, no nausea. Patient very concerned about her bowels, indicates that prior to admission she had been taking a lot of laxatives as she thought she was constipated, believes that may have caused her problems with her sodium. Feels that her stools are firm however nursing staff reported that her stools were loose yesterday. Denies any abdominal pain. Appears less anxious, has been ambulating with walker in the hallways. Denies any chest pain, no shortness of breath. Tolerating fluid restriction well. Physical Exam Vital signs: Vital Signs 03/20/18 18:00 03/21/18 06:00 Temperature 97.6 F 97.6 F Pulse Rate 91 H 77 Respiratory Rate 18 16 Blood Pressure 118/56 L 132/61 Pulse Oximetry 97 98 Intake & Output 03/20/18 03/21/18 03/21/18 18:59 06:59 18:59 Intake Total 960 / 960 360 / 360 120 / 120 Balance 960 / 960 360 / 360 120 / 120 Intake: Oral 960 / 960 360 / 360 120 / 120 Other: # Voids 2 2 Date of Last Bowel Movement 03/18/18 03/21/18 # Bowel Movements 0 Narrative: GENERAL: This is a well-nourished, well-developed patient, in no apparent distress. SKIN: Excoriated skin between buttocks HEENT: Normocephalic. Pupils equal round and reactive. Nose without bleeding. Airway patent. NECK: Trachea midline. CARDIOVASCULAR: Regular rate and rhythm without murmurs, gallops, or rubs. RESPIRATORY: Clear to auscultation. Breath sounds equal bilaterally. No wheezes , rales, or rhonchi. GASTROINTESTINAL: Abdomen soft, non-tender, nondistended. Bowel Sounds normoactive x4. MUSCULOSKELETAL: Extremities without clubbing, cyanosis, or edema. NEUROLOGICAL: Awake and alert. No focal neuro deficit. Moves all extremities. Normal speech. PSYCH: Less tremulous, depressed affect Results - Labs CBC & Chem 7: 03/21/18 07:40 Laboratory Results - last 24 hr 03/21/18 07:40 Sodium 132 L Potassium 4.4 Chloride 95 L Carbon Dioxide 29.9 Anion Gap 7 BUN 15 Creatinine 0.60 Estimated GFR Greater than 89 Random Glucose 95 Calcium 9.1 Assessment and Plan - Assessment (1) Adjustment disorder with depressed mood Code(s): F43.21 - Adjustment disorder with depressed mood Status: Acute (2) Hyponatremia Code(s): E87.1 - Hypo-osmolality and hyponatremia Status: Acute (3) Pituitary adenoma Code(s): D35.2 - Benign neoplasm of pituitary gland Status: Chronic - Plan Patient is a 77-year-old female with past medical history of hypertension, GERD , macular degeneration left eye, autoimmune hepatitis, history of skin cancer, incidental findings of marked microadenoma on CT, recently treated for dehydration and altered mental status at [facility]. Depression, suicidal ideation -Managed by psychiatry team Hyponatremia -Sodium level on admission 134 and has been trending down -NA 126 -->124 -->126-->126-->125-->129-->132 -Okay to stop IV fluid -Decrease sodium tabs to 1 g daily. -Continue fluid restriction. This has been extensively discussed with patient. -Continue to monitor sodium levels -Urine osmolarity 259 -Urine sodium, urine lytes results noted. Macroadenoma -Incidental findings of pituitary microadenoma [facility], underwent extensive workup. -Seen by neurology in that hospital and recommends follow-up with CT scan in 2-3 months with her PCP as well as follow-up as outpatient with endocrinology. Early satiety, c/o nausea-sx better today Constipation -resolved -zofran PRN -will avoid Reglan due to interactions with SSRI for now. -Colace BID -Discussed with patient that she has as needed milk of magnesium available, she is requesting daily MiraLAX however she is having soft bowel movements. Already on Deya-Colace twice daily. Emphasized the need to avoid overuse of laxatives at home as it may lead to electrolyte imbalance. Noted with elevated blood pressure, 160s. Patient has history of hypertension, not on medications at home. Blood pressure better control Continue Norvasc 5 mg p.o. daily DVT prop ambulatory We will sign off for now, reconsult if needed Code Status: Full code Discussed Condition With: pt, manager wholesale Planning: DC planning per Primary Care team
[2018-03-22] MEDS: LORazepam 0.5 MG Tablet PO SCH ×2 (08:21→21:28)
[2018-03-22] MEDS: Vitamins A,C,E/Lutein/Minerals Tablet PO SCH ×2 (08:21→21:29)
[2018-03-22] MEDS: amLODIPine 5 MG Tablet PO SCH (08:22)
[2018-03-22] MEDS: Docusate Sodium 100 MG Capsule PO SCH ×2 (08:22→21:28)
[2018-03-22] MEDS: Sertraline 100 MG Tablet PO SCH (08:22)
[2018-03-22] MEDS: Sodium Chloride 0.9% 2 ML Flush BID IV.FLUSH SCH ×2 (08:24→21:35)
--- NOTE | 2018-03-22 08:33 | P.PNPSY ---
Subjective Remarks: Patient seen for follow-up, chart reviewed. Discussion with nursing staff reported the patient noted to have better affect and mood. Patient was found lying hospital bed noted B, cooperative. Patient states she is feeling "wonderful" and that her mood has been pretty good denying any suicide ideations reported feeling less depressed. Patient states that she no longer is having these dark thoughts and is more hopeful and wanting to go home. Patient asked what that she need to do to go home. Patient was encouraged to continue participation in groups and activities and continuing compliance with medications which she agreed. Review of Systems All other systems reviewed negative except as stated in HPI Mental Status Examination Appearance: Appropriate Consciousness: Alert Orientation: Person, Place, Date/Time Speech: Unremarkable Language: Adequate Fund of Knowledge: Inadequate Attention and Concentration: Easily distracted Memory: Impaired Mood: Other ("Pretty good") Affect: Appropriate Thought Process & Associations: Goal directed, Linear Thought Content: Preoccupations (Lessening) Hallucination Type: None Delusion Type: None Suicidal Ideation: No Suicidal Plan: No Suicidal Intention: No Homicidal Ideation: No Homicidal Plan: No Homicidal Intention: No Insight: Fair Judgment: Impulsive Assessment and Plan - Assessment (1) Adjustment disorder with depressed mood Code(s): F43.21 - Adjustment disorder with depressed mood Status: Acute - Plan Plan: Patient noted with improvement in mood, no longer endorsing any suicide ideations but continues to have some degree of anxiety but lessening. We will continue current treatment. We will continue to monitor mood and behavior. We will continue recommendations as per prior medical team as hyponatremia appears to be improving. Discharge planning a progress. Justification for Continued Inpatient Stay: At risk of further decompensation a lower level of care.
[2018-03-22] MEDS: Sodium Chloride 1 GM Tablet PO SCH (10:19)
[2018-03-22 10:36] LABS: Calcium 9.6 mg/dL (8.5-10.1); Carbon Dioxide 29.7 meq/L (21.0-32.0)
[2018-03-23] MEDS: Sodium Chloride 1 GM Tablet PO SCH (09:27)
[2018-03-23] MEDS: Vitamins A,C,E/Lutein/Minerals Tablet PO SCH ×2 (09:27→21:28)
[2018-03-23] MEDS: LORazepam 0.5 MG Tablet PO SCH ×2 (09:27→21:28)
[2018-03-23] MEDS: Docusate Sodium 100 MG Capsule PO SCH ×2 (09:27→21:28)
[2018-03-23] MEDS: amLODIPine 5 MG Tablet PO SCH (09:27)
[2018-03-23] MEDS: Sodium Chloride 0.9% 2 ML Flush BID IV.FLUSH SCH ×2 (09:28→21:28)
[2018-03-23] MEDS: Sertraline 100 MG Tablet PO SCH (09:28)
--- NOTE | 2018-03-23 10:10 | P.PNPSY ---
Subjective Remarks: Patient seen for follow, chart reviewed. Discussion nursing staff reported the patient at times appears with sad affect but compliant medications slept well. Patient was found sitting hospital bed eating breakfast noted B, cooperative. Patient states that she is feeling "good" reports having been visited by her family which she states wants her home. She states that she is looking forward to going home soon as well. Patient denies having had any more "dark thoughts" denies any suicidal ideations, reports eating and drinking well with adequate bowel movement. Patient reports tolerating treatment well. Review of Systems All other systems reviewed negative except as stated in HPI Mental Status Examination Appearance: Appropriate Consciousness: Alert Orientation: Person, Place, Date/Time Speech: Unremarkable Language: Adequate Fund of Knowledge: Inadequate Attention and Concentration: Easily distracted Memory: Impaired Mood: Other ("Pretty good") Affect: Appropriate Thought Process & Associations: Goal directed, Linear Thought Content: Preoccupations (Lessening) Hallucination Type: None Delusion Type: None Suicidal Ideation: No Suicidal Plan: No Suicidal Intention: No Homicidal Ideation: No Homicidal Plan: No Homicidal Intention: No Insight: Fair Judgment: Impulsive Assessment and Plan - Assessment (1) Adjustment disorder with depressed mood Code(s): F43.21 - Adjustment disorder with depressed mood Status: Acute - Plan Plan: Patient appears to have improvement in mood, feeling less depressed, feeling less anxious and compliant with medications which she is tolerating. We will continue current treatment. We will continue to monitor mood and behavior. Sodium levels appear to be improving as well. We will continue recommendations as per hospitalist input. Discharge planning a progress. Justification for Continued Inpatient Stay: At risk of further decompensation a lower level of care.
[2018-03-24 05:19] VITALS: BP 157/71; PULSE 89; RESP 16; TEMP 98; O2SAT 94
[2018-03-24 07:23] LABS: Anion Gap 8 meq/L (5-15); Blood Urea Nitrogen 9 mg/dL (7-18); Calcium 8.5 mg/dL (8.5-10.1); Carbon Dioxide 27.9 meq/L (21.0-32.0); Chloride 97 meq/L (98-107); Glomerular Filtration Rate Greater Than 89 mL/min (>89); Glucose,Random 92 mg/dL (74-106); Potassium 4.3 meq/L (3.5-5.1); Sodium 133 meq/L (136-145)
--- NOTE | 2018-03-24 09:37 | P.TTN ---
- Patient Problems Problems: 1. Discharge planning 2. Medication compliance 3. Knowledge deficit 4. Lack of coping skills - Progress Toward Goals Provider Present: Dr. Caden Luna Provider Input: 03/24: Pt's Sodium level is being monitored, as soon as this is at an acceptable level, pt will be discharged back home with spouse. 03/19/18: Pt scheduled for court on 03/20; pt continues to present with significant depression, it is reported to MD that pt has been increasing her participation in activities which decreases her isolative time. Pt's mood, movement have increased. No changes to psych medications and other medical tx needs continue. Psychiatric Counselors Present: Paul Portillo Jr., [facility] Psychiatric Therapist Input: 03/24: OTR reports pt is attending groups with increased enthusiasm and greater engagement, her mood continues to improve. OTR ; Rip; reports that pt is attending more groups to greater lengths of time and pt is continuing to ambulate out of room with PT and with family, using rw, pt's mood is lifting. Group Spec/RT/OT/NORIEGA Present: Daria Arteaga, GPS, LEANN Ruiz, Rip Lees, OT Group Spec/RT/OT/NORIEGA Input: 03/24: Pt has been attending exercise without need for external motivation, she continues to interact with good self motivation and initiation. 03/19/18: pt has been attending exercise and fresh air groups, she recently attended spirituality. Pt has been more conversive with others. Occupational Therapist Input: 03/19/18: Pt has been educated and has been involved with interactions with other staff and patients. Pt has been increasing her level of independence with self care and ADLS, she continues to be visited with daily regularity by family, her depressed mood is lifting though slowly. Pt has made significant progress with her interactions with others, with her acceptance and with her initiation of self motivation. Additional Input: 03/24: Pt, when sodium levels are within appropriate ranges, will be discharged home with spouse. Pt is expected to d/c today or shortly thereafter. 03/19/18: Pt is expected to return home to live with her spouse, pt to be at [facility]. Pt is expected to discharge within days. - Documentation Teaching Recipient: Patient
[2018-03-24] MEDS: Docusate Sodium 100 MG Capsule PO SCH (09:39)
[2018-03-24] MEDS: amLODIPine 5 MG Tablet PO SCH (09:39)
[2018-03-24] MEDS: Sodium Chloride 1 GM Tablet PO SCH (09:39)
[2018-03-24] MEDS: Vitamins A,C,E/Lutein/Minerals Tablet PO SCH (09:39)
[2018-03-24] MEDS: Sertraline 100 MG Tablet PO SCH (09:40)
[2018-03-24] MEDS: LORazepam 0.5 MG Tablet PO SCH (09:40)
--- NOTE | 2018-03-24 16:51 | P.DSPSY ---
Psychiatry Discharge Summary Inpatient Psychiatric care?: Yes Advance Directives: No Mental Health Advance Directive: No Health Care Proxy: No - Admission Admission Date: March 10, 2018 23:40 - Admission Diagnosis (1) Adjustment disorder with depressed mood Code(s): F43.21 - Adjustment disorder with depressed mood Brief History: Patient is a 77-year-old woman, , retired on Social Security income, domiciled with , with no past psychiatric history, no previous psychiatric diagnoses, no previous psychiatric admissions, suicide attempts or self-injurious behavior, with a past medical history significant for hypertension, GERD, autoimmune hepatitis, history of skin cancer, who was transferred from a local hospital after being under [place] act which patient had endorse suicide ideations and attempted to herself on the medical floor which patient was admitted to the inpatient psychiatry unit for further evaluation and management. As per chart [place] states patient with suicide attempt and never to kill herself. No will to live due to her medical conditions and decrease socialization secondary to visual problems. States "no hope, too much to handle". Stuffing sheets in her mouth and covering her nose and try to wrap an IV line around her neck. Patient was found lying hospital bed noted B, cooperative. Patient is alert and oriented x3. Patient states that she had been stressed and worried about eating and concerns of recent constipation. Patient states that she had broken the law in which she tried to harm herself with anything she could grab referred to staffing closet her mouth and appear quite on her neck. Patient states that she had attempted this at [facility] during her medical admission for dehydration. Patient denies having a specific plan but had suicide ideation for several days due to "cannot figure out what to eat, cannot make choices, hopeless". Patient states that she has been feeling depressed due to her physical conditions at this time. Currently continues to endorse suicide ideations feeling that things would not change, hopeless, decreased sleep for the past month, denying any change in appetite but has hesitancy to eat due to fear of constipation as stated above. Patient continues to feel helpless and hopeless, with decreased energy and concentration. Patient denies any perceptional disturbances at this time. Collateral contact, patient's daughter Leti Hyatt, was contacted via telephone stated that patient recently has since her hip surgery patient had been struggling with recovering in the patient to be frustrated with limited help. She states that the patient had become dehydrated which led to her admission to [facility] and prior to discharge from that admission patient had tried to hurt herself. She states that she believes patient feared that if she went home she would not receive the help at home. She agrees to be patient's healthcare surrogate and guardian advocate there is admission consents for treatment which medication regimen was reviewed and discussed benefits/risks/alternatives. Family psychiatric history: Uncle committed suicide Past psychiatric history: Denies previous psychiatric diagnoses, hospitalizations, suicide attempt or self-injurious behavior. Patient with no mental health outpatient provider. No previous medication trials. Past medical history: HTN, GERD, history of skin cancer, autoimmune hepatitis Allergies: Sulfas Substance use history: Denies Social history: , domiciled with , retired on Social Security income, mosque is [employer], patient not sure if there are firearms in the home. Tobacco Use In Past 30 Days: No How Often Do You Have a Drink Containing Alcohol: Monthly or less Hospital Course: Patient is a 77-year-old woman, , retired on Social Security income, domiciled with , with no past psychiatric history, no previous psychiatric diagnoses, no previous psychiatric admissions, suicide attempts or self-injurious behavior, with a past medical history significant for hypertension, GERD, autoimmune hepatitis, history of skin cancer, who was transferred from a local hospital after being under [place] act which patient had endorse suicide ideations and attempted to herself on the medical floor which patient was admitted to the inpatient psychiatry unit for further evaluation and management. Patient was admitted to a locked, inpatient psychiatric unit. Appropriate precautions were in place throughout patient's hospital stay. Patient was seen and examined on the unit by psychiatry. Psychotropic medications were adjusted. There was no further evidence of any suicidality; denied homicidality on the inpatient unit. Patient's mood improved with the benefit of psychopharmacological treatment and had no behavioral disturbance since admission. Patient was followed by medical team due to hyponatremia and medically cleared prior to discharge. Patient was noted to have reached stable mood, noted to participate and engage in treatment and interact with staff adequately. Patient noted to be future oriented with plans to continue treatment and outpatient follow-up appointments for continuity of care. Counselor has arranged discharge plan. On the day of discharge: Patient seen and examined; chart reviewed. Case discussed with nurse and counselor. No behavioral issues overnight. On my examination today, the patient denies any suicidal homicidal ideation, intent or plan on direct questioning and contracts for safety. Patient denies any perceptional disturbances and no delusional material verbalized today. Patient denies any side effects from medication and has understanding of medication regimen and education. No physical complaints. Suicide and violence risk assessment on day of discharge both suggest lower imminent risk, and the patient's level of function is adequate for plan level of outpatient care. Patient has maximized benefit from this inpatient psychiatric hospital stay and will be discharged with discharge plan as arranged by counselor. Patient advised to return to psychiatric emergency room for any concerning psychiatric symptoms. Patient and patient's agrees with plan. - Discharge Discharge Date: 03/24/18 - Discharge Diagnosis (1) Adjustment disorder with depressed mood Code(s): F43.21 - Adjustment disorder with depressed mood Status: Acute Discharge Disposition: Home - Discharge Instructions Discharge Diet: Heart Healthy Diet Activities You Can Perform: Weight Bearing As Tolerat - Discharge Time > 30 minutes Mental Status Examination Appearance: Appropriate Consciousness: Alert Orientation: Person, Place, Date/Time Speech: Unremarkable Language: Adequate Fund of Knowledge: Inadequate Attention and Concentration: Adequate Memory: Unremarkable Mood: Good Affect: Appropriate Thought Process & Associations: Goal directed, Linear Thought Content: Appropriate Hallucination Type: None Delusion Type: None Suicidal Ideation: No Suicidal Plan: No Suicidal Intention: No Homicidal Ideation: No Homicidal Plan: No Homicidal Intention: No Insight: Fair Judgment: Impulsive Discharge/Advance Care Plan - Results Vital Signs: Last Vital Signs Temp 98 F 03/24/18 05:18 Pulse 89 03/24/18 05:18 Resp 16 03/24/18 05:18 BP 157/71 H 03/24/18 05:18 Pulse Ox 94 L 03/24/18 05:18 Lab Results: Abnormal Lab Results 03/24/18 06:02 Sodium 133 L Potassium 4.3 Chloride 97 L Carbon Dioxide 27.9 Anion Gap 8 BUN 9 Creatinine 0.57 Estimated GFR Greater than 89 Random Glucose 92 Calcium 8.5 D Laboratory Results Hemoglobin A1c 5.5 % (4.3-6.0) 03/11/18 15:00 Triglycerides 83 mg/dL (42-150) 03/11/18 06:50 Cholesterol 147 mg/dL (120-200) 03/11/18 06:50 LDL Cholesterol, Calc 40 mg/dL (0-99) 03/11/18 06:50 HDL Cholesterol 90.8 mg/dL (40.0-60.0) H 03/11/18 06:50 Summary of Procedures: none Pending Results: None - Medications Number of antipsychotic medications at discharge: 0 - Discharge Care Plan Goals to Promote Your Health: * To prevent worsening of your condition and complications * To maintain your health at the optimal level Directions to Meet Your Goals: Take your medications as prescribed Follow your dietary instruction Follow activity as directed Keep your appointments as scheduled Take your immunizations and boosters as scheduled If your symptoms worsen call your PCP, if no PCP go to Urgent Care Center or Emergency Room For 07/01 questions related to your inpatient stay or results of tests pending at discharge, please contact Dr. Velasquez Luna MD at Smoking is Dangerous to Your Health. Avoid second hand smoking
== END 2018-03-24 16:30 | disposition home or self-care (01) ==
LOC: H4EA 23:40
PROVIDERS: ADMIT Student in an Organized Health Care Education/Training Program; ATTEND Student in an Organized Health Care Education/Training Program